=== PATIENT | male | born 1945 | race Caucasian/White ===

== ENCOUNTER → 2024-03-29 14:49 | Outpatient (REF) | payer OTHER, SELFPAY | LOC: RCS 14:49 | PROVIDERS: ATTENDING PHYSICIAN Family Medicine | DX: I49.9 Cardiac arrhythmia, unspecified (principal) | CPT/HCPCS: 93005 ==

== ENCOUNTER → 2024-08-23 11:47 | Outpatient (REF) | payer OTHER, SELFPAY | LOC: HWRAD 11:47 | PROVIDERS: ATTENDING PHYSICIAN Family Medicine | DX: F17.210 Nicotine dependence, cigarettes, uncomplicated (principal) | CPT/HCPCS: 71271 ==

== ENCOUNTER → 2024-12-15 09:43 | Outpatient (REF) | payer OTHER, SELFPAY | LOC: RAD 09:43 | PROVIDERS: ATTENDING PHYSICIAN Nurse Practitioner Family; FAMILY PHYSICIAN Family Medicine | DX: M54.42 Lumbago with sciatica, left side (principal); M25.552 Pain in left hip | CPT/HCPCS: 72110; 73523 ==

== ENCOUNTER 2025-03-27 21:58 | Inpatient (IN) | payer OTHER, SELFPAY ==
[2025-03-27] VITALS (11 sets, daily range): BP systolic 93–132; BP diastolic 60–98; BMI 25.2
[2025-03-27 18:23] LABS: Glucose - Point of Care 320 mg/dl (70-99)
[2025-03-27 18:54] LABS: Hematocrit 45.8 % (39.0-52.0); Hemoglobin 16.2 g/dL (13.0-18.0); Mean Corp Hgb Conc. 35.4 g/dL (33.0-37.0); Mean Corpuscular Volume 92.9 fL (80.0-94.0); Nucleated Red Blood Cells % 0 % (-); Platelet Count 182 10^3/uL (130-400); Red Cell Dist. Width 12.4 % (11.5-14.5)
[2025-03-27] MEDS: NSS 1000 IV (18:59)
[2025-03-27 19:09] LABS: ALT (SGPT) 18 U/L (0-50); AST (SGOT) 21 U/L (17-59); Albumin 5.1 g/dl (3.5-5.0); Alkaline Phosphatase 45 U/L (38-126); Blood Urea Nitrogen 23 mg/dl (9-20); Calcium 9.8 mg/dl (8.4-10.2); Carbon Dioxide 26 mmol/L (22-30); Chloride 105 mmol/L (98-107); Glucose 323 mg/dl (70-99); Potassium 4.6 mmol/L (3.5-5.1); Sodium 142 mmol/L (135-145); Total Protein 8.0 g/dl (6.3-8.2); eGFR 38.29
[2025-03-27 19:42] LABS: Troponin I 0.047 ng/ml
[2025-03-27] MEDS: LOW STRENGTH ASPIRIN 324 MG PO (20:04)
[2025-03-27 20:36] LABS: Urine Character Clear (Clear)
--- NOTE | 2025-03-27 20:41 | ED.GENMED ---
History of Present Illness
General
Chief Complaint: Change in Mental Status
Source: patient and family
Exam Limitations: none
Time Seen by Provider: 03/27/25 18:50
Nursing documentation reviewed up to this point in time: agreed with except (Patient here after syncopal event; had transient confusion in triage that patient says was more agitation due to having to be in the hospital)
History of Present Illness
History of Present Illness:
79-year-old male with history of mild dementia, COPD, hypertension, CAD, CKD presents to the emergency room with his daughters for evaluation after syncopal episode. Patient was at a green party for his granddaughter and was talking to a family member
when he apparently started to have a blank look on his face and became profusely diaphoretic and stumbled forward. Fortunately family was able to catch him and lowered him down onto her couch. Patient apparently was complaining of some nausea and
daughter say he was grabbing in his chest but patient denies chest pain. He was brought into the emergency room and while he was in triage he apparently was mildly confused although patient says that he was actually just agitated because he did not
want to be in the emergency room. At time of my assessment patient says that he feels well he denies having dizziness, chest pain, shortness of breath, palpitations, nausea, abdominal pain or any other issues. He denies any headache, focal
weakness or numbness, change in his vision or speech. There has apparently been some increased stress at home due to recent passing of patient's .
Past History
Past History
ED Past Medical History: CAD, HTN, NIDDM and Other (gout)
ED Past Surgical History: None
Social History
Personal:
Living: with family
Employment: Retired
Review of Systems
Review of Systems
All Other Systems: ROS reviewed and negative except as documented in HPI and ROS
Constitutional: Denies fever
Respiratory: Denies trouble breathing
Cardiac: Reports diaphoresis and syncope; Denies chest pain
ABD/GI: Denies abdominal pain, nausea or vomiting
: Denies flank pain
Musculoskeletal: Denies neck pain or back pain
Neurological: Denies headache
Phy Exam
Physical Exam
Physical Exam:
General: Awake, alert, oriented x3; no acute distress
Head: Normocephalic, atraumatic
Eyes: Conjunctiva normal, EOMI
Throat: Airway intact, handling secretions
Neck: Trachea midline, supple without meningismus
Lungs: Clear to auscultation bilaterally, no wheezing, rales, rhonchi
Heart: Regular rate and rhythm, no murmurs, gallops, or rubs appreciated
Abd: Soft, non distended, nontender
Neuro: Cranial nerves intact, speech fluid without dysarthria or aphasia, no limb ataxia, motor and sensory intact in all extremities
Skin: Warm and dry, no signs of trauma
Extremities: No edema in extremities, equal pulses in all extremities
Scores
Heart Failure Risk
Heart Failure Risk Score: Not Applicable
Heart Score for Chest Pain Patients
STEMI patient?: Not applicable
Withdrawal Assessment of Alcohol
Withdrawal Assessment Completed?: Not applicable
Course
Orders/Labs/Results
Orders:
Orders
03/27/25 Dinner
1800 calorie (15 carb) Diabetic
At Your Request: Full Participation
03/27/25 18:35
EKG [Electrocardiogram (*1)] Urgent
Reason for Study: Syncope
EKG- Treatment ONCE
03/27/25 18:47
Complete Blood Count/With Diff Urgent
Comprehensive Metabolic Panel Urgent
03/27/25 18:51
CT Head W/o Iv Contrast Urgent
Comment:
Reason For Exam: syncope, transient confusion
0.9% Sodium Chloride 1000 ml [Nss] 1,000 ml IV BOLUS
03/27/25 18:54
Acetone [B-Hydroxybutyrate] Urgent
Troponin I Urgent
03/27/25 19:46
Aspirin Chewable [Low Strength Aspirin] 324 mg PO NOW STA
03/27/25 20:30
Urinalysis Reflex To Culture Urgent
Date Specimen was Collected: 03/27/25
Time Specimen was Collected: 20:28
03/27/25 20:38
Heparin 4,000 units IV NOW STA
03/27/25 20:[address] Non Medication Order As Directed
Physician Order: PTT 6 hours after initial start of Heparin infusion
Above order entered?: Yes
03/27/25 20:44
PTT Urgent
Comment: Obtain baseline before beginning heparin infusion if not already collected
03/27/25 20:45
Heparin 72836 Units/250 ml 25,000 units in 250 ml IV PER PROTOCOL
Weight to be used for heparin protocol in kilograms (kg):: 88.9
Protocol:: Cardiac Tx/Acute Coronary
PTT Goal Range to be used:: PTT 73 to 111 seconds
Order type:: Initial
INITIAL Infusion Dose (UNITS/KG/hr) & then follow protocol:: 12 units/kg/hr
Infusion Dose in UNITS/hr & then follow protocol (UNITS/hr):: 1,000
INFUSION RATE in mL/hr & then follow protocol (mL/hr):: 10
PTT less than or equal to 64 seconds:: Increase rate by 200 units/hr (+ 2 mL/hr)
PTT 64.1 to 72.9 seconds:: Increase rate by 100 units/hr (+ 1 mL/hr)
PTT 73 to 111 seconds:: Target Range. No change in rate.
PTT 111.1 to 130.9 seconds:: Decrease rate by 100 units/hr (- 1 mL/hr)
PTT 131 to 199.9 seconds:: HOLD for 1 hr. Then decrease rate by 200 units/hr (- 2 mL/hr)
PTT greater than or equal to 200 seconds:: HOLD for 2 hrs & Notify Provider. Then decrease by 200 units/hr (-
2 mL/hr)
Lab follow-up:: Each change, PTT q6h until 2 consecutive are therapeutic. Then PTT
daily.
03/27/25 21:23
Admit/Transfer Patient As Directed
Co-Sign Provider:
Level of Care: Inpatient admission
Assign to:: IVU
Physician / Group: Karlie
Diagnosis: NSTEMI
Reason for Hospitalization: syncope, nstemi
Expected length of stay greater than two midnights?: Yes
ELOS- Estimated Length of Stay in days: 2
I certify the patient meets the requirements for IP care: Yes
PRN Pain Medication Management As Directed
May give lesser potent ordered pain med per pt: Yes
preference::
Protocol:: Medication orders for pain may be administered in a
manner that supports deferring to patient preference
when the pt is:
- Requesting an ordered lesser potent pain medication.
Least to most potent pain medications are defined
as: acetaminophen < NSAID < tramadol < opioids
(morphine, oxycodone, hydromorphone).
- Requesting a lesser dose of the same medication IF
ORDERED.
- Requesting a less intrusive route of administration
if both routes are prescribed by the provider (PO <
IV).
03/27/25 21:24
Code Status As Directed
Resuscitation Status: Full Code
03/27/25 22:30
Troponin I Urgent
03/27/25 23:46
0.9% Sodium Chloride 1000 ml [Nss] 1,000 ml IV 75 mls/hr
Acetaminophen [Tylenol] 650 mg PO Q4HPRN PRN
Gabapentin [Neurontin] 300 mg PO TID
Ipratropium/Albuterol Sulfate [Duoneb] 3 ml INH R Q4HPRN PRN
Ondansetron Injectable [Zofran] 4 mg IV Q6HPRN PRN
03/27/25 23:46
Echo 2D MMode Color/Doppler Routine
Reason for Study: chest pain
Diabetes Management by Nurse Practitioner Routine
Consulting Provider: Alda Grace
Was provider already notified?: No
Reason for Consult: Insulin Recommendation
VTE Contraindication Routine
VTE Mechanical Device Contraindication: Medical Contraindication
Pharmocologic Contraindication: Medical Contraindication
Glycohemoglobin (HgbA1c) Routine
Heparin Protocol- PTT Orders As Directed
PTT per Heparin protocol: -Obtain CBC and baseline PTT - if not already collected.
-Obtain PTT 6 hours from start of infusion. Then, every 6 hours until 2 consecutive
PTT's are therapeutic. Then, PTT Daily.
-With each rate change, obtain PTT every 6 hours until 2 consecutive PTT's are
therapeutic. Then, PTT Daily.
Activity As Directed
Activity Level: With Assistance
Bedside Glucose Monitoring As Directed
Frequency: Q6H
ECG as needed As Directed
ECG as needed for:: Chest Pain
Additional Instructions:: with chest pain x 2 episodes.
INT (Intravenous Needle Therapy) As Directed
Comment: maintain peripheral IV access
Intake/ Output As Directed
Frequency: Per unit guidelines
Notify MD As Directed
Notify physician if: PTT is greater than or equal to 200.
Vital Signs As Directed
Frequency: q4h
Weight As Directed
Frequency: Daily
Pulse Ox/cont/shift [RESP] Routine
Quantity: 1
03/28/25 00:00
Insulin Aspart Corrective Low [Novolog Flexpen-Low Resistance] See Protocol SC Q6
03/28/25 00:55
Troponin I Q3H
Comment: at admit & Q3H for 3 total including ED draws, obtain ECG with each level
03/28/25 03:45
Basic Metabolic Panel IN AM
Cardiovascular Evaluation IN AM
Complete Blood Count/No Diff IN AM
Magnesium IN AM
NT-proBNP IN AM
PTT Stat
Troponin I Q3H
Comment: at admit & Q3H for 3 total including ED draws, obtain ECG with each level
Troponin I Q3H
Comment: at admit & Q3H for 3 total including ED draws, obtain ECG with each level
03/28/25 06:00
Electrocardiogram (*1) IN AM
Reason for Study: Chest Pain
Comment: at admission and Q3H for total of 3, to be done with each troponin
03/28/25 08:00
Aspirin Chewable [Low Strength Aspirin] 81 mg PO DAILY
Dapagliflozin [Farxiga] 5 mg PO DAILY
Duloxetine Delayed Release [Cymbalta Delayed Release] 30 mg PO BID
Ezetimibe [Zetia] 10 mg PO DAILY
Fluticasone/Salmeterol 115/21 [Advair Hfa 115/21 Mcg Inhaler] 2 puff INH R BID
Galantamine [Razadyne] 8 mg PO DAILY
Losartan [Cozaar] 100 mg PO DAILY
Memantine HCl [Namenda] 10 mg PO DAILY
Pantoprazole [Protonix] 40 mg PO DAILY
Sitagliptin Phosphate [Januvia] 50 mg PO DAILY
Tamsulosin [Flomax] 0.8 mg PO DAILY
03/28/25 09:00
Orthostatic Vital Signs As Directed
Orthostatic VS Frequency: Now
03/28/25 18:00
Rosuvastatin Calcium [Crestor] 40 mg PO QPM
03/29/25 06:00
Complete Blood Count/No Diff Q2D
Comment: notify provider: Platelet count < 130,000 or decrease by 50% from baseline
03/31/25 06:00
Complete Blood Count/No Diff Q2D
Comment: notify provider: Platelet count < 130,000 or decrease by 50% from baseline
04/02/25 06:00
Complete Blood Count/No Diff Q2D
Comment: notify provider: Platelet count < 130,000 or decrease by 50% from baseline
04/04/25 06:00
Complete Blood Count/No Diff Q2D
Comment: notify provider: Platelet count < 130,000 or decrease by 50% from baseline
04/06/25 06:00
Complete Blood Count/No Diff Q2D
Comment: notify provider: Platelet count < 130,000 or decrease by 50% from baseline
04/08/25 06:00
Complete Blood Count/No Diff Q2D
Comment: notify provider: Platelet count < 130,000 or decrease by 50% from baseline
04/10/25 06:00
Complete Blood Count/No Diff Q2D
Comment: notify provider: Platelet count < 130,000 or decrease by 50% from baseline
04/12/25 06:00
Complete Blood Count/No Diff Q2D
Comment: notify provider: Platelet count < 130,000 or decrease by 50% from baseline
Abnormal Lab Results
03/27/25 03/27/25 03/27/25
18:21 18:47 18:54
WBC 13.2 H 10^3/uL
(4.8-10.8)
MCH 32.9 H pg
(27.0-31.0)
Absolute Neuts (auto) 8.5 H 10^3/uL
(1.4-6.5)
Absolute Monos (auto) 1.0 H 10^3/uL
(0.1-0.6)
BUN 23 H mg/dl
(9-20)
Creatinine 1.8 H mg/dL
(0.7-1.3)
Glucose 323 H mg/dl
(70-99)
Troponin I 0.047 H* ng/ml
Albumin 5.1 H g/dl
(3.5-5.0)
Urine Glucose
POC Glucose 320 H mg/dl
(70-99)
03/27/25
20:30
WBC
MCH
Absolute Neuts (auto)
Absolute Monos (auto)
BUN
Creatinine
Glucose
Troponin I
Albumin
Urine Glucose 4+ A
(Negative)
POC Glucose
03/27/25 18:47
03/27/25 18:47
Vital Signs
Initial and Last Documented VS:
Initial Vital Signs
Temp Pulse Resp BP Pulse Ox
36.4 C 50 18 132/84 98
03/27/25 18:23 03/27/25 18:23 03/27/25 18:23 03/27/25 18:23 03/27/25 18:23
Last Documented Vital Signs
Temp Pulse Resp BP Pulse Ox
36.6 C 67 18 122/79 99
03/28/25 03:35 03/28/25 04:15 03/28/25 03:35 03/28/25 03:37 03/28/25 03:35
MDM/Problems Addressed
Differential Diagnosis Includes:
Dysrhythmia, valvular disease, IA, stroke, vasovagal syncope, dysautonomia, dehydration
MDM/Problems Addressed:
79-year-old male presents for evaluation after syncopal event associated with profuse diaphoresis; daughter said that he also complained of some chest pain but patient denies this. He had some transient agitation/confusion in triage that patient
says was because he did not want to be in the hospital and felt bad about causing a scene and his granddaughters green party. Currently says he is asymptomatic. Vital signs normal. Physical exam as above. He had lab work sent off including a CBC which
showed no anemia, CMP showed [place] with a creatinine of 1.8. EKG showed sinus rhythm with some nonspecific T wave abnormalities. His initial troponin was mildly elevated. CT head no acute pathology. Concern for NSTEMI although /valvular disease
a consideration. Low suspicion for PE with no tachycardia, tachypnea, hypoxia, chest pain, shortness of breath. Will start aspirin, heparin, admit for continued management, trending of troponins. Discussed with hospitalist.
Chronic conditions affecting care:
CAD
*Pulse Oximetry
SaO2: 98
Oxygen Mode of Delivery: Room air
Patient hypoxic: no (98%)
*EKG
Interpreted by ED Provider?: Yes
Heart Rate: 98
Rate: normal
Rhythm: sinus
[place]: normal axis
Interval: normal interval
QRS Pattern: normal QRS
Ischemia: other (Nonspecific T wave abnormalities)
*Critical Care Note
Total Time (30-74mins, 75-104mins- exclusive of procedures): Not Applicable
Data Reviewed
Review of Other/Old Records Reveals: Labs and Records
Source: patient and family
Patient Management
Discussion with other providers: Hospitalist (Discussed with hospitalist)
Escalation/DeEscalation of care consider admission/obs:
Admission indicated
ED Attending Note
-
Portions of this chart may have been created with voice recognition software.� Occasional wrong word or��sound alike� substitutions may have occurred due to the inherent limitations of voice recognition software.
Discharge Plan
Departure
Patient Disposition: Admit
Date of Disposition: 03/27/25
Time of Disposition: 20:41
Admit to doctor: Karlie
Presentation/result/management discussed w/ accepting MD/DO: Hospitalist
Discharge Problem:
Syncope, Non-ST elevation IA (NSTEMI)
Interventions
Interventions:
*Risk Screen - Suicide Last Done: 03/27/25 18:23
*General Assessment Last Done: 03/27/25 18:23
*ED- Fall Risk Assessment Last Done: 03/27/25 18:23
*ED COVID-19 Vaccine History Last Done: 03/27/25 18:23
*Nursing Disposition Last Done: 03/28/25 00:18
ED- Pulmonary Assessment Last Done: 03/27/25 19:00
ED- Neurological Assessment Last Done: 03/27/25 19:00
ED- Cardiac Assessment Last Done: 03/27/25 19:00
Discharge Date and Time
Discharge Date/Time: 03/28/25 00:18
--- NOTE | 2025-03-27 20:56 | HPS.HSE ---
Family Physician
-
Family Physician: Lisa Lobo
Chief Complaint
-
NSTEMI
History of Present Illness
This is a 79-year-old with past medical history significant for hypertension, cnd-lzianlv-ipyajvoow diabetes, carotid artery disease, COPD not on home O2, hyperlipidemia CKD stage III history of PVCs, early dementia presenting to the emergency
department after a syncopal episode at home.
Family reports that for about the last 2 weeks patient has appeared more fatigued. However patient himself denies any dizziness lightheadedness chest pain orthopnea PND lower extremity swelling palpitations or shortness of breath or dyspnea on
exertion. Denies any acute weight gain or weight loss. He denies any fevers or chills.
Apparently was in usual state of health yesterday. Today while at home sitting and talking with family members he had a brief syncopal episode where he almost collapsed and was caught by family members. He came to with some mild confusion and some
difficulty with speech. He had no loss of bladder or bowel continence. Patient then had episode of diaphoresis for about 30 minutes which prompted them to come to the emergency department. He denied having any other symptoms. He denied any
antecedent chest pain palpitations lightheadedness or dizziness. He has had no diarrhea melena or hematochezia. Patient denies any prior history of NSTEMI, STEMI or obstructive CAD denies prior history of congestive heart failure or arrhythmias.
Family reports that his blood glucose has been running higher in the last few weeks up to 197 yesterday and 300 today. Patient reports compliance with his usual medications but has not been able to check his blood glucose regularly. Denies any
urinary symptoms.
On arrival in Emergency Department, patient was afebrile blood pressure was 116/60 with a pulse rate of 97 satting 90% on room air. ECG shows a normal sinus rhythm at rate of 8098. Initial troponin was 0.047. Her chest x-ray was clear. CT of the
head shows no acute intracranial process.
CBC was notable for a white count of 13.2 but otherwise unremarkable. Electrolytes were normal. BUN/creatinine were 23 and 1.8 similar to prior. Glucose was elevated at 323.
Medical History
Past Medical History
Past Medical History: Reports Other
Additional Past Medical History:
Type 2 diabetes
Hypertension
Hyperlipidemia
Carotid artery disease
CAD
COPD not on home O2
Obstructive sleep apnea
Dementia
History of skin cancer status post resection
Past Surgical History: Reports Other
Social History
Tobacco: Former Smoker
Alcohol: None
Drug: None
Family History
Family History: Not pertinent
Allergies / Home Medications
Allergies reflects when Allergies were last updated in [facility].
Home Medications with original date entered in [facility]
Allergy/Medication List:
Allergies
Allergy/AdvReac Type Severity Reaction Status Date / Time
shellfish derived Allergy Hives Verified 03/27/25 18:31
Omeprazole 20 MG take 1 po daily Oral Dec, Active
Aspirin 81 MG chew 1 tablet by oral route every day Oral Dec, Active
Rosuvastatin Calcium 40 MG 1 tablet Orally Once a day for 30 days Nov, Active
amLODIPine Besylate 5 MG 1 tablet Orally Once a day for 30 days Not-Taking/PRN
Colchicine 0.6 MG 1 tablet Orally Once a Day as Needed PRN Active
Gabapentin 300 MG 2 capsules Orally Three Times a Day Active
Fish Oil 1000 MG 2 in am and 2 in pm Once a Day takes 4 tab s Active
Wixela Inhub 250-50 MCG/ACT 1 puff Inhalation EVERY 12 HOURS Oct, Active
glipiZIDE 5 MG 1 tablet Orally Once a day Active
Cyanocobalamin 1000 MCG 1 tablet Orally Once a day Active
Memantine HCl 10 MG 1 tablet Orally Once a day prn Active
Zetia 10 MG 1 tablet Orally Once a day for 30 days Jul, Active
DULoxetine HCl 30 MG 1 capsule Orally twice daily for 90 days Dec, Active
Losartan Potassium 100 MG 1 tablet Orally Once a day for 30 day(s) Active
sAXagliptin HCl 5 MG 1 tablet Orally Once a day Active
Galantamine Hydrobromide 8 MG 1 tablet with meals Oral Once a Day Dec, Active
Jardiance 25 MG 1/2 tablet Orally Once a day Active
Tamsulosin HCl 0.4 MG take 2 capsule by oral route every day 1/2 hour following the same meal each day Oral Once a Day Dec, Active
Review of Systems
-
Constitutional: Reports No Symptoms
EENT: Reports No Symptoms
Respiratory: Reports No Symptoms
Cardiac: Reports No Symptoms
Abdomen/GI: Reports No Symptoms
: Reports No Symptoms
Musculoskeletal: Reports No Symptoms
Skin: Reports No Symptoms
Neurological: Reports No Symptoms
Endocrine: Reports Other (feels thirsty)
Hematologic/Lymphatic: Reports No Symptoms
Psych: Reports No Symptoms
Physical Exam
Vital Signs
Vital Signs
Temp Pulse Resp BP Pulse Ox
97.5 F 97 22 116/62 98
03/27/25 18:23 03/27/25 20:31 03/27/25 20:31 03/27/25 20:04 03/27/25 20:42
Physical Exam
General: Well Developed, Well Nourished and No Apparent Distress
HEENT: NormoCephalic, Moist mucous membranes and Atraumatic
Respiratory: Clear
Cardiac: S1/S2 and Regular Rhythm; No Murmur or Rub
GI: Soft, Non Tender, Non Distended and Normal Bowel Sounds; No Organomegaly
Rectal: Deferred by Provider
Musculoskeletal: No Clubbing, No Cyanosis and No Edema
Skin: No Rash
Neuro: Nonfocal/grossly intact
Laboratory Results
-
03/27/25 18:47
03/27/25 18:47
Laboratory Results
Total Bilirubin 0.9 mg/dl (0.2-1.3) 03/27/25 18:47
AST 21 U/L (17-59) 03/27/25 18:47
ALT 18 U/L (0-50) 03/27/25 18:47
Alkaline Phosphatase 45 U/L (38-126) 03/27/25 18:47
Troponin I 0.047 ng/ml H* 03/27/25 18:54
Data Reviewed
-
CT Scan: Report Reviewed by me
Medical Tests (Nuc Med, Echo, EKG etc): Image Personally Visualized and interpreted
Lab Data: Labs Reviewed by me
Old Records: Reviewed
Impression/Plan
-
IMPRESSION:
79-year-old with diabetes, hypertension, hyperlipidemia, coronary artery disease and CKD presenting with a syncopal episode associated with diaphoresis. Initial ECG shows a normal sinus rhythm, frequent PVCs on telemetry. Initial troponin was
0.047. Patient vital signs are stable at this time. CT of the head was negative. Neurological exam is nonfocal. He has no signs of acute infection, UA negative. Elevated glucose but no DKA. Concern is for arrhythmia which may be in the setting
of ischemia versus non-ST elevation FL.
PLAN:
1. NSTEMI - Diaphoresis, syncope, high risk factors. No chest pain at this time. ECG non-ischemic. PVCs on telemetry
- admit to ivu
- asa 324 x 1
- heparin gtt
- continue ezetimibe and rosuvastatin
- trend troponins
- echo in am, cardiovascular testing
- possible invasive testing, npo after midnight
- cardiology consult
2. Syncope - ACS vs arrythmia
- telemetry as above
- ischemic w/u as above
- check mag, keep K > 4
- check tsh
- if bea, will consult EP
- rate control and abortive if VT
- CT head negative
- check orthostatics
- s/p 1 L NS, continue with gentle hydration
3. Uncontrolled DM II - Glucose 320, No DKA
- sliding scale insulin
- continue jardiance/farxiga
- held glipizide while not eating
- check a1c
- diabetic consult
4. COPD/TARAN - stable
- continue inhaled home regimen
- prn nebs
- not using CPAP, continous pulse oximetry, Oxygen prn
5. HTN
- continue losartan,
6. CKD - Cr 1.8 bl
- hydrating overnight
- avoid nephrotoxins
- renal dose medications
DVT PPX - on heparin gtt
Code status - Full Code
[2025-03-27 21:00] LABS: APTT 28.9 Sec (23.4-35.0)
[2025-03-27] MEDS: HEPARIN 4000 UNITS IV (21:13)
[2025-03-27] MEDS: HEPARIN 25000 UNITS/250 ML IV (21:14)
[2025-03-27 23:05] LABS: Troponin I 0.032 ng/ml
[2025-03-28] VITALS (13 sets, daily range): BP systolic 113–165; BP diastolic 78–95; PULSE 92–104; BMI 25.2
[2025-03-28 00:23] LABS: Glucose - Point of Care 146 mg/dl (70-99)
[2025-03-28] MEDS: NSS 1000 IV ×2 (00:41→16:36)
[2025-03-28] MEDS: NOVOLOG FLEXPEN-LOW RESISTANCE SC ×2 (00:41→07:34)
[2025-03-28] MEDS: NEURONTIN 300 MG PO ×4 (00:42→23:48)
--- NOTE | 2025-03-28 01:11 | PTCARENOTE ---
Received patient from ED. SR with PVCs on the monitor, HR in the 70s. VSS on room air. Patient alert and oriented. Heparin running as per protocol, see documentation. IV fluids started as per order, see MAR. Admission assessment completed. Oriented
pt to room and educated pt on plan of care, pt verbalizes understanding. No complaints from pt at this time, call fernandez within reach.
[2025-03-28 01:39] LABS: Troponin I 0.040 ng/ml
[2025-03-28 04:04] LABS: Hematocrit 37.4 % (39.0-52.0); Hemoglobin 13.0 g/dL (13.0-18.0); Mean Corp Hgb Conc. 34.8 g/dL (33.0-37.0); Mean Corpuscular Volume 93.3 fL (80.0-94.0); Platelet Count 125 10^3/uL (130-400); Red Cell Dist. Width 12.4 % (11.5-14.5)
[2025-03-28 04:10] LABS: APTT 53.8 Sec (23.4-35.0)
[2025-03-28 04:15] LABS: Blood Urea Nitrogen 21 mg/dl (9-20); Calcium 8.7 mg/dl (8.4-10.2); Carbon Dioxide 19 mmol/L (22-30); Chloride 112 mmol/L (98-107); Estimated Creatinine Clearance 60 ml/min; Glucose 132 mg/dl (70-99); HDL Cholesterol 28 mg/dl; LDL Cholesterol, Calculated 14 mg/dl; Magnesium 1.9 mg/dl (1.6-2.3); Potassium 4.0 mmol/L (3.5-5.1); Sodium 139 mmol/L (135-145); Very Low Density Lipoprotein 38 mg/dl (0-30); eGFR > 60.00
[2025-03-28 04:33] LABS: Troponin I 0.044 ng/ml
[2025-03-28 04:49] LABS: TSH 1.26 uIU/ml (0.47-4.68)
[2025-03-28 06:30] LABS: Glucose - Point of Care 155 mg/dl (70-99)
--- NOTE | 2025-03-28 08:07 | CON.CAR ---
Addendum entered and electronically signed by Brenda Rob MD 03/28/25 13:03:
I saw and examined the patient.
The Supervising Bailiff's note was reviewed and I agree with the note.
Comment:
Exam:
Pleasant man in bed
Regular rate and rhythm with 2/6 basal systolic murmur
Lungs clear to auscultation bilateral decreased at the bases
Extremities no clubbing cyanosis or edema
He presented with an episode of syncope and brief change in mental status after being out in the heat and having uncontrolled sugars recently. Troponins have been flat with peak 0.047. EKG nonspecific ST-T wave abnormalities but not acute. Head CT
was negative for acute abnormality. He has known severe carotid disease on the right by ultrasound at the [place] 06/2024. He has not seen vascular by report. He denies chest discomfort. A few days prior to this he was lifting and emptying cabinets
in his home without difficulty. I spoke at length with the patient and his daughter at the bedside.
Plan at this time:
Syncope was most likely dehydration (creatinine also increased which improved with hydration) and uncontrolled diabetes
Continue hydration
Check orthostatic vital signs
Diabetes management per primary service (hemoglobin A1c 8.9%)
Check carotid ultrasound, may need outpatient vascular assessment
Currently on heparin, likely troponins represent nonischemic troponin elevation.
-Will check echocardiogram. If normal could consider inpatient/outpatient nuclear stress test pending how he does.
-If echocardiogram abnormal further treatment decisions to be determined.
Telemetry with PVCs. Asymptomatic. Follow. Await echo.
Lipids at goal continue current treatment
Addendum Dictated by: Brenda Rbo MD
Addendum Dictated Date & Time: 03/28/25
Addendum Co-Signer: Brenda Rob MD
Addendum Co-Sign Date & Time:03/28/251032
Addendum Signed by: Liane GASRIA,Brenda Wallace
Addendum Signed Date & Time: 07/21/25 1033
Original Note:
Consultation
Consultation Request
Date/Time Consultation Requested: 03/27/25 at 2346
Date/Time Consultation Performed: 03/28/25 at 0813
Requesting Provider: Dr. Resendiz
Performing Provider: Dr. Brenda Rob
Reason for Consultation: Syncope, elevated Troponin
Medical History
-
History of Present Illness:
Patient came to the ER yesterday with syncope and chest pain and cardiology is now consulted. Patient was standing outside at his granddaughter's birthday constitution party yesterday in the heat and humidity and was talking with his brother when he began to
look unwell and then had witnessed syncope. Daughter says patient with leg flailing. Patient able to get into a chair and then grabbed his chest. Patient was able to stand up and go inside for cake and then felt poorly again so his daughter brought
him to the ER. Patient with CHINA and hyperglycemia on admission. Patient is a known DM 2 and has not been checking his blood sugar at home for weeks due to running out of test strips. Patient also with carotid disease that is followed at the [place], but
his daughter feels this has not been evaluated recently.
PMH:
Frequent PVCs
Carotid disease
70-80% SALLY lesion by u/s at the [place] in 2023
Former smoker, quit 12/2024
HTN
Hyperlipidemia
DM 2
Past Medical History
Past Medical History: Other (in HPI)
Past Surgical History: Other (hemorrhoid surgery)
Social History
Tobacco: Former Smoker (quit 12/2024)
Alcohol: None
Drug: None
Personal: (his , Karine, with brain cancer 6 months ago)
Living: Alone
Family History
Family History: CAD, Cancer and Other (dementia)
Allergies / Home Medications
Allergy/AdvReac Type Severity Reaction Status Date / Time
shellfish derived Allergy Hives Verified 03/27/25 18:31
�Medication �Instructions �Recorded �Confirmed �Type
aspirin 81 mg capsule 81 mg PO DAILY 03/28/25 03/28/25 History
gabapentin 300 mg tablet 300 mg PO TID 03/28/25 03/28/25 History
Review of Systems
-
History Source: Patient
All other systems: Negative unless noted
Physical Exam
Vital Signs
Temp Pulse Resp BP Pulse Ox
97.8 F 67 18 122/79 99
03/28/25 03:35 03/28/25 04:15 03/28/25 03:35 03/28/25 03:37 03/28/25 03:35
GEN: NAD. AAOx3
HEENT: EOMI, MMM
LUNGS: RA. CTA B/L
CV: SR on tele. Reg, S1/S2, no murmur
ABD: soft, BS+, NT, ND
EXT: No clubbing, cyanosis, lesions or edema B/L
NEURO: Gross non-focal
SKIN: Warm, dry and pink. No rash
Lab Results
03/28/25 03:45
03/28/25 03:45
Troponin I 0.044 ng/ml H* 03/28/25 03:45
Troponin I Cancelled 03/28/25 03:45
Ggx-L-Hyvregqfxxm Pept 460 pg/ml 03/28/25 03:45
Impression / Plan
-
PCP: Dr. Lisa Lobo
Card: Dr. Doherty
Vascular surgeon: at the [place]
Impression:
Admitted with syncope and chest pain 03/27/25
Chest pain
Elevated Troponin
Syncope
Frequent PVCs and NSVT up to 4 beats
CHINA
Carotid disease
70-80% SALLY lesion by u/s at the [place] in 2023
Former smoker, quit 12/2024
HTN
Hyperlipidemia
DM 2
Exercise mibi 12/25/20: probably fixed defects in the mid inferior, apex and apical inferior segments
Echo 12/25/20: EF 50-55%, mod MR
Plan:
-Patient came to the ER yesterday with syncope and chest pain and cardiology is now consulted. Patient was standing outside at his granddaughter's birthday constitution party yesterday in the heat and humidity and was talking with his brother when he began to
look unwell and then had witnessed syncope. Daughter says patient with leg flailing. Patient able to get into a chair and then grabbed his chest. Patient was able to stand up and go inside for cake and then felt poorly again so his daughter brought
him to the ER. Patient with CHINA and hyperglycemia on admission. Patient is a known DM 2 and has not been checking his blood sugar at home for weeks due to running out of test strips. Patient also with carotid disease that is followed at the [place], but
his daughter feels this has not been evaluated recently.
-ECG reviewed by me looks like SR without ST changes.
-Tele reviewed by me and patient with frequent PVCs and up to 4 beat runs of NSVT. Patient with known h/o PVCs and was previously on Coreg, but it was stopped due to fatigue and overall not very symptomatic with PVCs.
-Initial Troponin 0.047 and then mostly trending down, but then up to 0.044 this morning. Additional Troponin pending.
-Patient denies chest pain, but family reports patient grabbed chest during this episode. Last ischemic evaluation reviewed above. Will likely proceed with inpatient stress test in the AM.
-Echo pending
-Interestingly, orthostatic VS not performed in the ER, suspect he could have been orthostatic with standing in the heat and humidity yesterday. Orthostatic VS ordered by me
-Cre up to 1.8 on admission and patient given 2 L IVFs and Cre improved to 1.2 today.
-Patient with known carotid disease that is followed at the [place], he had 70-80% SALLY lesion by last u/s in 2023. Repeat carotid u/s ordered by me
-Hospitalist attending working on DM management
--- NOTE | 2025-03-28 08:15 | W.PN.HOSP.TC ---
Addendum entered and electronically signed by Brenda Rob MD 03/28/25 13:02:
I signed and addended this note in error
Addendum entered and electronically signed by Brenda Rob MD 03/28/25 10:33:
I saw and examined the patient.
The Woven Label Designer's note was reviewed and I agree with the note.
Comment:
Exam:
Pleasant man in bed
Regular rate and rhythm with 2/6 basal systolic murmur
Lungs clear to auscultation bilateral decreased at the bases
Extremities no clubbing cyanosis or edema
He presented with an episode of syncope and brief change in mental status after being out in the heat and having uncontrolled sugars recently. Troponins have been flat with peak 0.047. EKG nonspecific ST-T wave abnormalities but not acute. Head CT
was negative for acute abnormality. He has known severe carotid disease on the right by ultrasound at the [place] 06/2024. He has not seen vascular by report. He denies chest discomfort. A few days prior to this he was lifting and emptying cabinets
in his home without difficulty. I spoke at length with the patient and his daughter at the bedside.
Plan at this time:
Syncope was most likely dehydration (creatinine also increased which improved with hydration) and uncontrolled diabetes
Continue hydration
Check orthostatic vital signs
Diabetes management per primary service (hemoglobin A1c 8.9%)
Check carotid ultrasound, may need outpatient vascular assessment
Currently on heparin, likely troponins represent nonischemic troponin elevation.
-Will check echocardiogram. If normal could consider inpatient/outpatient nuclear stress test pending how he does.
-If echocardiogram abnormal further treatment decisions to be determined.
Telemetry with PVCs. Asymptomatic. Follow. Await echo.
Lipids at goal continue current treatment
Original Note:
Today's Communication/Plan
-
Hemoglobin A1c
Cardiology consult
Echocardiogram
Orthostatics
Assessment / Plan
Assessment / Plan
Gen-AAOx3, NAD
HEENT-NC, AT, anicteric, clear oral mm
Neck-supple
CV-reg, no M, +S1/S2
Lungs-clear B/L
Abd-soft, NT, ND
Ext-no edema
Musculoskeletal-no cyanosis, clubbing
Skin-warm and dry
Neuro-grossly non-focal
Psych-calm, cooperative
Syncope -most likely due to volume depletion, possible vasovagal. Check orthostatic vitals. Volume status improved with IV fluids.
Echocardiogram pending.
CHINA -present on admission, due to volume depletion. Creatinine improved with IV fluids.
Troponin elevation -suspect acute nonischemic myocardial injury possibly due to CHINA and volume depletion.
Patient believes he had a silent [place] in 2009. Never had a catheterization. States he had a negative stress test a year ago.
DM2 with hyperglycemia -suspect hyperglycemia induced osmotic diuresis with volume depletion and subsequent presentation with syncope and CHINA. He ran out of test strips for his glucometer a week ago and likely has been hyperglycemic for a while.
Hemoglobin A1c pending.
At home he uses glipizide, Jardiance, saxagliptin. Not on insulin.
Acute thrombocytopenia -rule out pseudothrombocytopenia.
Essential hypertension -stable.
COPD without exacerbation
Hyperlipidemia -rosuvastatin.
History of skin cancer
TARAN
Carotid artery disease
Dementia, unknown type -on memantine, galantamine.
Full code
Dispo -likely discharge later today if okay with cardiology.
Anticipated Discharge: Today
Subjective/Interval History
-
Date of Service: March 28, 2025
Patient seen and examined, no complaints.
Objective Data
-
Labs:
Laboratory Results
03/27/25 03/28/25 03/28/25
20:44 03:45 10:20
WBC 7.5
Hgb 13.0
Hct 37.4 L
Plt Count 125 L D
APTT 28.9 53.8 H Pending
Sodium 139
Potassium 4.0
Chloride 112 H
Carbon Dioxide 19 L
BUN 21 H
Creatinine 1.2
Glucose 132 H
Calcium 8.7
Vital Signs:
Vital Signs
Temp Pulse Resp BP Pulse Ox
97.8 F 67 18 122/79 99
03/28/25 03:35 03/28/25 04:15 03/28/25 03:35 03/28/25 03:37 03/28/25 03:35
Review of Systems
-
History Source: Patient
All other systems: Reviewed and negative
[2025-03-28 08:20] LABS: Glycohemoglobin (HgbA1c) 8.9 % (4.0-5.6)
[2025-03-28] MEDS: ADVAIR HFA 115/21 MCG INHALER 2 PUFF INH ×2 (08:32→19:57)
--- NOTE | 2025-03-28 09:05 | CM ---
Reviewed chart. Met with Mr. Gamez to review discharge plans. He states prior to admission he resides alone in a one story home. He states prior to admission he was independent with ambulation and adls. He states he does not have any DME in the
home. He states he has a prescription plan and uses [facility]. Medical work-up in progress. The discharge plan is to return home when medically stable.
[2025-03-28 09:32] LABS: Glucose - Point of Care 156 mg/dl (70-99)
[2025-03-28] MEDS: PROTONIX 40 MG PO (09:34)
[2025-03-28] MEDS: JANUVIA 50 MG PO (09:35)
[2025-03-28] MEDS: LOW STRENGTH ASPIRIN 81 MG PO (09:35)
[2025-03-28] MEDS: FLOMAX 0.8 MG PO (09:35)
[2025-03-28] MEDS: COZAAR 100 MG PO (09:35)
[2025-03-28] MEDS: NAMENDA 10 MG PO (09:35)
[2025-03-28] MEDS: CYMBALTA DELAYED RELEASE 30 MG PO ×2 (09:35→20:17)
[2025-03-28] MEDS: FARXIGA 5 MG PO (09:35)
[2025-03-28] MEDS: ZETIA 10 MG PO (09:36)
[2025-03-28] MEDS: RAZADYNE 8 MG PO (09:36)
[2025-03-28] MEDS: NOVOLOG FLEXPEN-LOW RESISTANCE 1 UNITS SC ×2 (09:41→18:54)
--- NOTE | 2025-03-28 11:34 | CARDSERVLU ---
Echocardiogram with [facility] completed after protocol screening completed. Allergies verified.
Patent IV site: ____left AC_
IV site flushed with 0.9% NaCl pre and post administration.
Diluted bolus method utilized to enhance visualization of ventricular bradshaw.
Total volume given: ___3.0 mL
Patient tolerated all procedures well without complications.
[2025-03-28 12:35] LABS: Glucose - Point of Care 212 mg/dl (70-99)
[2025-03-28 12:36] LABS: APTT 56.7 Sec (23.4-35.0)
[2025-03-28 12:57] LABS: Troponin I 0.036 ng/ml
[2025-03-28] MEDS: NOVOLOG FLEXPEN-LOW RESISTANCE 2 UNITS SC ×2 (13:07→23:48)
--- NOTE | 2025-03-28 14:01 | W.PN.UPDATE ---
Addendum entered and electronically signed by Brenda Rob MD 03/29/25 08:43:
I personall spoke at great length in afternoon 03/28/25 with the patient and his 2 daughters at the bedside. We discussed decline in LVEF and concern re: CAD in the setting of mildly elevated troponin and uncontrolled DM. We discussed the risks and
benefits of cardiac cath and other treatment options. All questions answered. He is clinically stable. Plan for cath 03/29 and GDMT for likely CAD and HFmREF.
Original Note:
Update Note
Progress Note Update
Back in to talk with patient and both of his daughters are now in the room. Reviewed echo findings from today with EF 40% which is new compared to echo from 2020. Patient with chest pain and elevated Troponin. Reviewed symptoms on admission and
talked about options and family and patient would like to pursue cardiac cath in AM. Cont heparin gtt. Outpatient dose of aspirin 81 mg daily continued. Will hold losartan in AM and follow BMP.
[2025-03-28] MEDS: HEPARIN 25000 UNITS/250 ML IV (18:49)
[2025-03-28 18:56] LABS: Glucose - Point of Care 191 mg/dl (70-99)
[2025-03-28] MEDS: CRESTOR 40 MG PO (19:19)
[2025-03-28 19:57] LABS: APTT 61.2 Sec (23.4-35.0)
[2025-03-28 22:56] LABS: Glucose - Point of Care 219 mg/dl (70-99)
[2025-03-29] VITALS (10 sets, daily range): BP systolic 120–145; BP diastolic 66–100; BMI 25.6
[2025-03-29 03:24] LABS: Hematocrit 35.5 % (39.0-52.0); Hemoglobin 12.1 g/dL (13.0-18.0); Mean Corp Hgb Conc. 34.1 g/dL (33.0-37.0); Mean Corpuscular Volume 93.2 fL (80.0-94.0); Nucleated Red Blood Cells % 0 % (-); Platelet Count 115 10^3/uL (130-400); Red Cell Dist. Width 12.3 % (11.5-14.5)
[2025-03-29 03:31] LABS: APTT 103.9 Sec (23.4-35.0)
[2025-03-29 03:32] LABS: Blood Urea Nitrogen 19 mg/dl (9-20); Calcium 8.5 mg/dl (8.4-10.2); Carbon Dioxide 23 mmol/L (22-30); Chloride 110 mmol/L (98-107); Estimated Creatinine Clearance 72 ml/min; Glucose 163 mg/dl (70-99); Potassium 4.0 mmol/L (3.5-5.1); Sodium 137 mmol/L (135-145); eGFR > 60.00
--- NOTE | 2025-03-29 05:02 | PTCARENOTE ---
Rec'd pt at change of shift. Pt AAO*3, VSS, and SR on TELE monitor. Heparin and iv fluids infusing as ordered. Pt resting with call fernandez in reach. See MAR and flowchart for full pt care and assessment. Pt npo after midnight for heart cath.
--- NOTE | 2025-03-29 05:02 | DOWNTIME ---
There was a Plan Me Up Client Chemistry Research Assistant Downtime on 03/29/2025 from 0100 to 03/29/2025 at 0220. Downtime documentation of patient's care, including medication administrations, has been reconciled in the electronic record per guidelines. Refer to the
patient's paper chart under the miscellaneous tab to see printed paper medication records and downtime forms.
[2025-03-29] MEDS: NSS 1000 IV (06:03)
[2025-03-29] MEDS: NOVOLOG FLEXPEN-LOW RESISTANCE 1 UNITS SC ×2 (06:07→12:45)
[2025-03-29 06:08] LABS: Glucose - Point of Care 153 mg/dl (70-99)
[2025-03-29] MEDS: ADVAIR HFA 115/21 MCG INHALER 2 PUFF INH (07:56)
[2025-03-29] MEDS: FARXIGA 5 MG PO (08:19)
[2025-03-29] MEDS: NAMENDA 10 MG PO (08:19)
[2025-03-29] MEDS: NEURONTIN 300 MG PO (08:19)
[2025-03-29] MEDS: RAZADYNE 8 MG PO (08:19)
[2025-03-29] MEDS: JANUVIA 50 MG PO (08:19)
[2025-03-29] MEDS: PROTONIX 40 MG PO (08:19)
[2025-03-29] MEDS: ZETIA 10 MG PO (08:19)
[2025-03-29] MEDS: LOW STRENGTH ASPIRIN 81 MG PO (08:20)
[2025-03-29] MEDS: CYMBALTA DELAYED RELEASE 30 MG PO (08:20)
[2025-03-29] MEDS: FLOMAX 0.8 MG PO (08:20)
--- NOTE | 2025-03-29 11:23 | W.PN.HOSP.TC ---
Today's Communication/Plan
-
Diabetes JORDAN MAN consult
Discharge
Assessment / Plan
Assessment / Plan
Gen-AAOx3, NAD
HEENT-NC, AT, anicteric, clear oral mm
Neck-supple
CV-reg, no M, +S1/S2
Lungs-clear B/L
Abd-soft, NT, ND
Ext-no edema
Musculoskeletal-no cyanosis, clubbing
Skin-warm and dry
Neuro-grossly non-focal
Psych-calm, cooperative
Nonischemic cardiomyopathy -new diagnosis. Echocardiogram shows LVEF 40% with global hypokinesis, mild to moderate concentric LVH. Normal diastolic function. Mild to moderate MR.
Cardiac catheterization 03/29 without significant CAD.
Outpatient cardiology follow-up.
Syncope -most likely due to volume depletion, possible vasovagal. Not orthostatic based on vitals. Volume status improved with IV fluids.
CHINA -present on admission, due to volume depletion. Creatinine improved with IV fluids.
Troponin elevation -suspect acute nonischemic myocardial injury possibly due to [place] and volume depletion.
Patient believes he had a silent [place] in 2009. States he had a negative stress test a year ago.
DM2 with hyperglycemia -suspect hyperglycemia induced osmotic diuresis with volume depletion and subsequent presentation with syncope and CH[place]. He ran out of test strips for his glucometer a week ago and likely has been hyperglycemic for a while.
Hemoglobin A1c 8.9%.
At home he uses glipizide, Jardiance, saxagliptin. Not on insulin.
Family requesting diabetes JORDAN MAN consult. Recommend close outpatient follow-up with PCP.
Acute thrombocytopenia -rule out pseudothrombocytopenia.
Left carotid stenosis -Doppler ultrasound suggests greater than 70% ICA stenosis. Outpatient vascular surgery follow-up. Discussed with patient and family.
Essential hypertension -stable.
COPD without exacerbation
Hyperlipidemia -rosuvastatin.
History of skin cancer
TARAN
Carotid artery disease
Dementia, unknown type -on memantine, galantamine.
Full code
Dispo -anticipate discharge today, discussed with cardiology. Follow-up as outpatient. Updated daughters at the bedside.
33 minutes spent in discharge process.
Anticipated Discharge: Today
Subjective/Interval History
-
Date of Service: March 29, 2025
Patient seen and examined. No complaints.
Objective Data
-
Labs:
Laboratory Results
03/29/25 03/29/25
02:36 09:30
WBC 5.6
Hgb 12.1 L
Hct 35.5 L
Plt Count 115 L
APTT 103.9 H Pending
Sodium 137
Potassium 4.0
Chloride 110 H
Carbon Dioxide 23
BUN 19
Creatinine 1.0
Glucose 163 H
Calcium 8.5
Vital Signs:
Vital Signs
Temp Pulse Resp BP Pulse Ox
97.8 F 74 18 120/87 97
03/29/25 08:16 03/29/25 10:33 03/29/25 08:16 03/29/25 10:33 03/29/25 08:16
I&O
03/28/25 03/29/25 03/30/25
06:59 06:59 06:59
Intake Total 480 / 480
Balance 480 / 480
Review of Systems
-
History Source: Patient
All other systems: Reviewed and negative
--- NOTE | 2025-03-29 11:27 | ITS.CL.CATH ---
[facility] - Catheterization
Cardiac Catheterization
Procedure Report:
LEFT HEART CATHETERIZATION
Date of Procedure: March 29, 2025
Referring: Dr. Brenda Rob
PROCEDURES:
1. Coronary angiography
INDICATION: Newly diagnosed cardiomyopathy
ACCESS: Right radial artery, 6 Spanish sheath
HEMODYNAMICS : (mmHg)
AO (s/d) : 130/76
CORONARY FINDINGS
DOMINANCE: Codominant
LEFT MAIN: Normal
LEFT ANTERIOR DESCENDING: The LAD arises normally from the left main and runs in the anterior interventricular groove. The LAD has only minor irregularities over its course with no focal obstructive stenosis.
CIRCUMFLEX: The circumflex is a large-caliber dominant vessel that has only minimal luminal irregularities. The PDA is widely patent
RIGHT CORONARY ARTERY: The right coronary artery is a small caliber codominant vessel with only minor irregularity
VENTRICULOGRAPHY: Not done
SEDATION: 18 minutes of procedural sedation was utilized. An independent lpn or medical assistant was present to assist with and help manage the patient's level of consciousness and physiologic status.
RADIATION SUMMARY: Fluoro Time (min): 3.5, Dose (mGy): 367, DAP (Gy.cm2) : 25.7
Closure Device: TR band
CONCLUSIONS
1. Nonobstructive coronary disease
RECOMMENDATIONS
1. Medical therapy for dilated ischemic cardiomyopathy
Copy to: Dr. Brenda Rbo
[2025-03-29 11:30] LABS: Glucose - Point of Care 167 mg/dl (70-99)
--- NOTE | 2025-03-29 11:41 | W.DS.TRANS ---
DC Summary - Division Operations Manager
-
Discharge Instructions:
Discharge Diagnosis/Procedures Acute kidney injury, volume depletion,
nonischemic cardiomyopathy, syncope, left
carotid stenosis, cardiac catheterization
Diet Low Fat,Diabetic, Carb Controlled
Activity As tolerated
Driving Restrictions No driving for 24 hours
Bathing Restrictions None
Specialty Instructions Weigh Daily
Instructions:
Stand-Alone Forms: DC Instructions- Cath/EP Lab
Changes to Home Medications: Yes
Discharge Medications:
DC Medications w/original date entered in [employer]
aspirin 81 mg capsule 81 mg PO DAILY 03/28/25
gabapentin 300 mg tablet 300 mg PO TID 03/28/25
duloxetine 30 mg capsule,delayed release 30 mg PO BID #0 caps 03/29/25
empagliflozin 25 mg tablet (Jardiance) 25 mg PO DAILY #30 tabs 03/29/25
ezetimibe 10 mg tablet 10 mg PO DAILY #0 tabs 03/29/25
fluticasone propionate 115 mcg-salmeterol 21 mcg/actuation HFA inhaler 2 puff inhalation R BID #0 grams 03/29/25
galantamine 8 mg tablet 8 mg PO DAILY #0 tabs 03/29/25
glipizide 5 mg tablet 5 mg PO DAILY #30 tabs 03/29/25
losartan 100 mg tablet 100 mg PO DAILY #0 tabs 03/29/25
memantine 10 mg tablet 10 mg PO DAILY #30 tabs 03/29/25
rosuvastatin 40 mg tablet 40 mg PO QPM #0 tabs 03/29/25
saxagliptin 5 mg tablet 5 mg PO DAILY #30 tabs 03/29/25
tamsulosin 0.4 mg capsule 0.8 mg (2 x 0.4 mg) PO DAILY #0 caps 03/29/25
Home Medication Changes
Jardiance increased to 25 mg daily.
Pending Results: No
--- NOTE | 2025-03-29 11:54 | CM ---
Reviewed chart. Met with Mr. Gamez and his daughter to review discharge plans. He states he is feeling well and maybe able to go home soon. We reviewed [facility] with them. Mr. Gamez states he does not feel he will need [facility] Services.
Daughter states his three daughters resides nearby and they are supportive. Prior to admission he resides alone in a one story home. Prior to admission he was independent with ambulation and adls. He does not have any DME in the home. He has a
prescription plan and uses [facility]. Medical work-up in progress. The discharge plan is to return home with daughters support when medically stable.
--- NOTE | 2025-03-29 12:09 | PN.DE.MGMTRT ---
Insulin Management
- -
03/29/2025 Diabetes Management Consult
Patient admitted 03/27 with change in mental status, syncopal episode, NSTEMI. PMH mild dementia, COPD, HTN, CAD, CKD. Prior to admission was taking saxagliptin 5 mg daily, Jardiance 12.5 mg daily and glipizide 5 mg daily. A1C on admission 8.9%,
cr 1, eGFR >60.
Patient is awake alert and oriented able to discuss diabetes management. Daughter at bedside with many questions. Patient ran out of test strips which he gets at the [place]. Recommended obtaining the [employer] meter at [facility] as test strips are more
affordable. Daughter questioning CGM; recommended checking with [facility] but usually not covered unless he is taking insulin.
Glucose on admission 320. Glucose range 155 to [address] Resendiz, will increase Jardiance to 25 mg, continue glipizide 5 mg daily and saxagliptin 5 mg.
Discussed with patient and daughter after discharge he should test glucose fasting each morning and 2 hours after each meal for two weeks to establish a pattern, after two weeks can test 2 times per day, fasting and 2 hours alternating after a
meal. To report glucose results to primary doctor and [facility].
My phone number provided for further questions.
Discussed with nurse.
Patient for discharge today.
Diabetes History
- -
Type of Diabetes: 2
Pre-Admission Diabetes Regimen
03/29/25
02:36
Creatinine 1.0
Lab Results
Hemoglobin A1c 8.9 % (4.0-5.6) H 03/28/25 00:55
Insulin Pump Settings
IP Diabetes Regimen
03/28/25 03/28/25 03/28/25
12:33 18:53 22:53
Glucose
POC Glucose 212 H 191 H 219 H
03/29/25 03/29/25 03/29/25
02:36 06:07 11:29
Glucose 163 H
POC Glucose 153 H 167 H
Meal type: Lunch
Amount consumed: 100%
Patient Education
[2025-03-29] MEDS: TOPROL XL 25 MG PO (12:45)
--- NOTE | 2025-03-29 13:27 | W.DS.TRANS ---
DC Summary - Rotary Drum Dyer
-
Discharge Instructions:
Discharge Diagnosis/Procedures Acute kidney injury, volume depletion,
nonischemic cardiomyopathy, syncope, left
carotid stenosis, cardiac catheterization
Diet Low Fat,Diabetic, Carb Controlled
Activity As tolerated
Driving Restrictions No driving for 24 hours
Bathing Restrictions None
Specialty Instructions Weigh Daily
Instructions:
Stand-Alone Forms: DC Instructions- Cath/EP Lab
Changes to Home Medications: Yes
Discharge Medications:
DC Medications w/original date entered in [employer]
aspirin 81 mg capsule 81 mg PO DAILY 03/28/25
gabapentin 300 mg tablet 600 mg PO TID 03/28/25
duloxetine 30 mg capsule,delayed release 30 mg PO BID #0 caps 03/29/25
empagliflozin 25 mg tablet (Jardiance) 25 mg PO DAILY #30 tabs 03/29/25
ezetimibe 10 mg tablet 10 mg PO DAILY #0 tabs 03/29/25
fluticasone propionate 115 mcg-salmeterol 21 mcg/actuation HFA inhaler 2 puff inhalation R BID #0 grams 03/29/25
galantamine 8 mg tablet 8 mg PO DAILY #0 tabs 03/29/25
glipizide 5 mg tablet 5 mg PO DAILY #30 tabs 03/29/25
losartan 100 mg tablet 100 mg PO DAILY #0 tabs 03/29/25
memantine 10 mg tablet 10 mg PO DAILY #30 tabs 03/29/25
metoprolol succinate 25 mg tablet,extended release 24 hr 25 mg PO DAILY #30 tabs 03/29/25
rosuvastatin 40 mg tablet 40 mg PO QPM #0 tabs 03/29/25
saxagliptin 5 mg tablet 5 mg PO DAILY #30 tabs 03/29/25
tamsulosin 0.4 mg capsule 0.8 mg (2 x 0.4 mg) PO DAILY #0 caps 03/29/25
Home Medication Changes
Jardiance dose increased.
Pending Results: No
== END 2025-03-29 14:24 | disposition home or self-care (01) | DRG 287 ==
LOC: IVU 21:58
PROVIDERS: Internal Medicine Interventional Cardiology; ADMITTING PHYSICIAN Internal Medicine; ATTENDING PHYSICIAN Hospitalist; CONSULT PHYSICIAN Internal Medicine Cardiovascular Disease; EMERGENCY PHYSICIAN Emergency Medicine; FAMILY PHYSICIAN Family Medicine
PROC: B2111ZZ Fluoroscopy of Multiple Coronary Arteries using Low Osmolar Contrast (ICD-10-PCS; 2025-03-29)
PROC: 4A023N6 Measurement of Cardiac Sampling and Pressure, Right Heart, Percutaneous Approach (ICD-10-PCS; 2025-03-29)
DX: I5A Non-ischemic myocardial injury (non-traumatic) (principal); N17.9 Acute kidney failure, unspecified; E11.65 Type 2 diabetes mellitus with hyperglycemia; I65.22 Occlusion and stenosis of left carotid artery; I25.10 Atherosclerotic heart disease of native coronary artery without angina pectoris; E86.9 Volume depletion, unspecified; J44.9 Chronic obstructive pulmonary disease, unspecified; E78.5 Hyperlipidemia, unspecified; G47.33 Obstructive sleep apnea (adult) (pediatric); N18.9 Chronic kidney disease, unspecified; I12.9 Hypertensive chronic kidney disease with stage 1 through stage 4 chronic kidney disease, or unspecified chronic kidney disease; Z85.828 Personal history of other malignant neoplasm of skin; Z79.84 Long term (current) use of oral hypoglycemic drugs; F03.A0 Unspecified dementia, mild, without behavioral disturbance, psychotic disturbance, mood disturbance, and anxiety; E11.22 Type 2 diabetes mellitus with diabetic chronic kidney disease; Z79.51 Long term (current) use of inhaled steroids; Z79.82 Long term (current) use of aspirin; Z79.899 Other long term (current) drug therapy; Z87.891 Personal history of nicotine dependence
CPT/HCPCS: 70450; 80048; 80053; 80061; 81003; 82010; 82962; 83036; 83735; 83880; 84443; 84484; 85025; 85027; 85730; 93005; 93306; 93458; 93880; 94640; 96361; 96374; 99152; 99285; 99406; C1769; C1894; Q9950; Q9967

== ENCOUNTER → 2025-05-10 14:12 | Outpatient (REF) | payer OTHER, SELFPAY | LOC: RCS 14:12 | PROVIDERS: ATTENDING PHYSICIAN Internal Medicine Cardiovascular Disease; FAMILY PHYSICIAN Family Medicine; OTHER PHYSICIAN Family Medicine | DX: I42.9 Cardiomyopathy, unspecified (principal) | CPT/HCPCS: 93306; Q9957 ==

== ENCOUNTER → 2025-05-26 14:48 | Outpatient (REF) | payer OTHER, SELFPAY | LOC: RAD 14:48 | PROVIDERS: ATTENDING PHYSICIAN Surgery Vascular Surgery; FAMILY PHYSICIAN Family Medicine | DX: I65.22 Occlusion and stenosis of left carotid artery (principal) | CPT/HCPCS: 70496; 70498; Q9967 ==

== ENCOUNTER 2025-06-02 06:15 | Inpatient (IN) | payer OTHER, SELFPAY ==
[2025-05-30 09:46] VITALS: BMI 26.8
[2025-05-30 10:12] LABS: Hematocrit 42.5 % (39.0-52.0); Hemoglobin 14.5 g/dL (13.0-18.0); Mean Corp Hgb Conc. 34.1 g/dL (33.0-37.0); Mean Corpuscular Volume 93.0 fL (80.0-94.0); Nucleated Red Blood Cells % 0 % (-); Platelet Count 132 10^3/uL (130-400); Red Cell Dist. Width 12.6 % (11.5-14.5)
[2025-05-30 10:41] LABS: INR 0.98; PT 13.3 Sec (11.4-14.6)
[2025-05-30 10:42] LABS: APTT 30.3 Sec (23.4-35.0)
[2025-05-30 11:04] LABS: Blood Urea Nitrogen 20 mg/dl (9-20); Calcium 9.1 mg/dl (8.4-10.2); Carbon Dioxide 26 mmol/L (22-30); Chloride 104 mmol/L (98-107); Estimated Creatinine Clearance 57 ml/min; Glucose 273 mg/dl (70-99); Potassium 4.2 mmol/L (3.5-5.1); Sodium 136 mmol/L (135-145); eGFR > 60.00
--- NOTE | 2025-05-30 15:36 | PTCARENOTE ---
Abnormal ECG done 04/14/[address] Barraza, no further intervention requested.
[2025-06-02] VITALS (7 sets, daily range): BP systolic 112–140; BP diastolic 65–83; BMI 26.6
[2025-06-02] MEDS: BACTROBAN NASAL 1 GRAM NASAL (07:05)
[2025-06-02] MEDS: VANCOCIN 530 MG IV (07:05)
[2025-06-02] MEDS: PERIDEX 0.12% ORAL RINSE 15 ML PO (07:05)
--- NOTE | 2025-06-02 07:12 | W.SUR.PREOP ---
Pre-Operative Surgical Note
-
I have examined this patient prior to the performance of the scheduled procedure.
The patient's condition is unchanged from the time of the current History and
Physical and the patient is able to undergo the scheduled procedure.
[2025-06-02 07:13] LABS: Glucose - Point of Care 215 mg/dl (70-99)
[2025-06-02] MEDS: NSS 500 IV (07:15)
--- NOTE | 2025-06-02 09:21 | OR.RPT ---
Operative Report
Operative Report
PROCEDURE DATE: 06/02/2025
Preoperative diagnosis: Symptomatic critical left carotid artery stenosis
Postoperative diagnosis: Same
Procedure: Left carotid endarterectomy with bovine pericardial patch angioplasty and intraoperative EEG/SSEP monitoring.
Surgeon: Carloz
Outreach Nurse: CASIE Loja, required for all aspects of procedure including assistance with traction/countertraction, following a suture line, assistance with closure.
Complications: None
Anesthesia: General
Indications for procedure:
Symptomatic left carotid artery stenosis. He had had a syncopal episode and immediately following that had expressive aphasia. Had a critical near occlusive left carotid artery stenosis. Risk/benefits/alternatives of revascularization were fully
discussed. Patient and his family understood all wished to proceed.
Description of procedure:
Patient was identified brought to the operating room placed on the table in supine position. After the adequate administration of anesthesia and perioperative antibiotics he was prepped and draped in the standard surgical fashion. A standard
preoperative timeout was undertaken and everybody was in agreement the plan. A standard longitudinal incision was made in the left neck that was carried through the skin subcutaneous tissue. Using the electrocautery dissection was carried through
the platysma muscle layer and then alongside the anterior medial border of the sternocleidomastoid muscle. An external jugular vein was ligated between silk ties and divided to allow better exposure. Then using a combination of sharp dissection
with the Metzenbaum scissors and electrocautery I dissected along the anterior medial border of the internal jugular vein. The common facial vein branch was ligated between silk ties and then divided. In addition the more cephalad branch was
ligated between silk ties and then divided to allow better exposure. I then deepened my retraction. The common carotid artery was identified and carefully dissected away from the surrounding structures take great care to avoid any injury to the
structures. A vessel loop was passed around it which was double looped, but not yet tightened. Note the vagus nerve was protected from harm's way. I then continued my dissection up the common carotid artery to the bulb staying only on the
anterior surface of the carotid artery. Then I carried the dissection up to the internal carotid artery and then to the distal internal carotid artery. The tissues were somewhat sticky, likely chronically inflamed from the plaque. I identified
where it was soft and carefully circumferentially dissected the internal carotid artery with minimal mobilization and passed a vessel loop around it. Note the hypoglossal nerve was clearly visualized and was preserved from harm's way. The patient
was given an appropriate dose of intravenous heparin 8500 units. Next I dissected the anterior surface of the external carotid artery and superior thyroid branches. These were then carefully circumferentially dissected with minimal mobilization
and vessel loops passed around these which were double looped but not yet tightened. After 3 minutes of heparin circulation time and confirmation of optimization of the blood pressure with my anesthesiology colleagues, I clamped the distal internal
carotid artery where it was soft. There was no immediate EEG or SSEP changes. After 1 minute of test clamp time there was no changes noted. Therefore at this point, the vessel loops on the external carotid artery and superior thyroid branches
were tightened and the common carotid artery was clamped where it was soft proximally. An arteriotomy was made on the common carotid artery with an 11 blade and extended using a Sarabia scissor. I extended the arteriotomy onto the mid to distal
internal carotid artery. As had been noted on CT scan, there is predominance of soft plaque that was somewhat friable centrally, that resulted in a severe near occlusive stenosis. A Shirley was then used to endarterectomized the plaque. An
endarterectomy plane was created, and the plaque was then endarterectomized. Distally I feathered the plaque out to a nice clean endpoint in the distal internal carotid artery. Next I endarterectomized the intima back to normal intima in the
common carotid artery, and the intima was cut flush there. I then grasped the plaque and everted plaque out of the origin of the external carotid artery. Plaque came out slightly piecemeal from the external carotid artery, but I was able to clear
the origin nicely. The plaque was then sent off for specimen. The origin of the external carotid artery was carefully visualized and any fine debris were removed with fine forceps. Proximal and distal endpoints were then carefully inspected. Any
fine debris was removed with fine forceps, and the intima was noted to be nicely adherent proximally and distally. Next any fine debris were removed throughout the endarterectomy bed with fine forceps. I then flushed heparinized saline. I was
very satisfied. Then, I used a bovine pericardial patch to sew a patch angioplasty with a running 6-0 Prolene suture. Prior to completing and tying down my suture line, I backbled sequentially each branch and reclamped each branch prior to
unclamping the next branch. I then irrigated with heparinized saline. Then I completed and tied down my suture line. We then restored flow in the common carotid and external carotid arteries. Finally, we released flow in the internal carotid
artery. There was excellent pulsatile flow in all 3 vessels. There was an excellent Doppler signal in the internal carotid artery distal to the patch with a good normal low resistance Doppler signal. There was a good Doppler signal in the
external carotid artery as well. Two 6-0 Prolene cefgfg-to-djlbo sutures were placed along two bleeding points along the suture line. Protamine was given to reverse the heparin. Hemostasis was completely achieved. We then irrigated and confirmed
full hemostasis. We then closed in layers with 2-0 Vicryl layer to reapproximate the sternocleidomastoid muscle, followed by 3-0 Vicryl platysma muscle running layer, followed by 4-0 Monocryl subcuticular stitch. Dermabond was applied. The
patient tolerated procedure well. He awoke moving all extremities to command with tongue in the midline. All sponge, needle, instrument counts were correct at the end of the case. Patient was transported recovery room in stable condition.
[2025-06-02 09:31] LABS: Glucose - Point of Care 244 mg/dl (70-99)
--- NOTE | 2025-06-02 09:46 | W.SUR.POST ---
Surgical Immediate Post Op
Note
Pre Op Diagnosis: Carotid stenosis
Post Op Diagnosis: Carotid stenosis
Procedure Performed: Left carotid endarterectomy with bovine pericardium patch, EEG monitoring
Primary Surgeon: Gonzalo Carty MD
Manager Rail: SINGH Jones
Anesthesia: GETA
Estimated Blood Loss: 15ml
Fluids: See anesthesia flow sheets
Drains/Shunts: N/A
Specimens/Cultures: Carotid plaque
Doppler/Duplex/Angio (Y/N): Y
Complications: None
Operative Findings: Successful carotid endarterectomy, upon awakening can move BL UE and LE spontaneously and to command with equal strength
[2025-06-02 09:53] LABS: Glucose - Point of Care 242 mg/dl (70-99)
[2025-06-02 10:07] LABS: Hematocrit 36.8 % (39.0-52.0); Hemoglobin 12.6 g/dL (13.0-18.0); Mean Corp Hgb Conc. 34.2 g/dL (33.0-37.0); Mean Corpuscular Volume 93.4 fL (80.0-94.0); Platelet Count 124 10^3/uL (130-400); Red Cell Dist. Width 12.4 % (11.5-14.5)
[2025-06-02 10:10] LABS: Blood Urea Nitrogen 20 mg/dl (9-20); Calcium 8.7 mg/dl (8.4-10.2); Carbon Dioxide 22 mmol/L (22-30); Chloride 110 mmol/L (98-107); Estimated Creatinine Clearance 68 ml/min; Glucose 260 mg/dl (70-99); Potassium 4.4 mmol/L (3.5-5.1); Sodium 138 mmol/L (135-145); eGFR > 60.00
[2025-06-02] MEDS: NOVOLOG vial 1 UNITS SC (10:14)
[2025-06-02 10:50] LABS: Glucose - Point of Care 292 mg/dl (70-99)
--- NOTE | 2025-06-02 11:00 | PTCARENOTE ---
Pt rec'd from PACU into ICU 3361 s/p left CEA...pt is AOX3, pleasant and cooperative, neuro check performed in tandem with offgoing RN, site checks per orders, left neck incision is approximated with surgical adhesive in place, mildly ecchymotic. Pt
RICHTER, strength equal bilat, pain level 6/10 in left neck. Orders rec'd and discussed with care team, pt medicated with PRN Roxicodone 5 mg-see MAR for documentation. Pt with NSS at 80/hr, PIV sites WNL, right radial art line leveled and zeroed,
slightly positional but stabilized with arm board, correlating with non invasive cuff. Pt's daughter arrived in room , admission completed, safe environment ongoing. Pt ordered bedrest this afternoon until am, all questions answered, call fernandez in
hand.
--- NOTE | 2025-06-02 11:28 | CON.INTV ---
Consultation
Consultation Request
Date/Time Consultation Requested: 06/02/2025924
Date/Time Consultation Performed: 06/02/2025952
Requesting Provider: SINGH Woodward
Performing Provider: Dr. Cintron
Reason for Consultation: S/p left CEA
Medical History
-
Chief Complaint: Elective left CEA
History of Present Illness:
79-year-old male former tobacco smoker with a past medical history of PAD, carotid artery stenosis, history of skin cancer, BPH, CKD, hyperlipidemia, hypertension, Alzheimer's dementia, NICM, gout, CAD and DM type II on insulin who presents for
elective left carotid endarterectomy. Patient known to vascular surgery with last visit on 05/27/[address] Carty. Patient has CTA head/neck on 05/26/2025 showing mixed density atherosclerotic plaque of the left carotid bifurcation/proximal ICA
with resultant focal complete occlusion of the proximal ICA. The remaining left ICA appears slightly diminutive. Patient was recommended for an expeditious revascularization for stroke prevention. Patient was recommended to have a carotid
endarterectomy and the risks of this procedure were discussed and the patient consented to this procedure. Today, patient underwent left carotid endarterectomy with bovine pericardial patch angioplasty and intraoperative EEG/SSEP monitoring. There
were no immediate complications. Patient was transferred to the ICU postoperatively, and Bridal Stylist Sales Consultant service is now consulted for additional management/recommendations.
When I saw the patient he was resting in bed in no acute distress. Current BP via A-line: 127/68, heart rate 54 and saturating 95% on room air. He has no complaints, denying chest pain, SIMPSON, shortness of breath, abdominal pain, nausea, fevers or
chills.
PMHx: Hyperlipidemia, hypertension, PAD, carotid arthrosclerosis, gout, nonobstructive CAD, DM type II on insulin, history of skin cancer (ear, nose and hand), CKD 3A, BPH, former tobacco user, suspected sleep apnea, Alzheimer's dementia,
nephrolithiasis (calcium oxalate), moderate mitral regurgitation, left rotator cuff tear, lung nodules, esophageal nodule, NICM
PSHx: Hemorrhoid surgery, bilateral cataract surgery, skin cancer excision
Past Medical History
Past Medical History: Other (Above as per HPI)
Past Surgical History: Other (Above as per HPI)
Social History
Tobacco: Former Smoker (14-[id number]-uspb history (0.5 PPD x 60 years) - quit last month)
Alcohol: Former (Quit in 1983)
Drug: None
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
Family History
Family History: CAD (Father, paternal uncle and brother) and Cancer (Mother: Lung cancer; Paternal aunt: liver cancer)
Allergies / Home Medications
Allergies
Allergy/AdvReac Type Severity Reaction Status Date / Time
lisinopril Allergy Severe angioedema Verified 06/02/25 06:32
metformin Allergy creatinine Verified 06/02/25 06:32
elevated
Penicillins Allergy Anaphylaxis Verified 06/02/25 06:32
shellfish derived Allergy Swelling Verified 06/02/25 06:32
Home Medications
�Medication �Instructions �Recorded �Confirmed �Last Taken �Type
ezetimibe 10 mg tablet 10 mg PO DAILY #0 tabs 03/29/25 06/02/25 06/01/25 11:00 Rx
glipizide 5 mg tablet 5 mg PO DAILY #30 tabs 03/29/25 06/02/25 06/01/25 11:00 Rx
losartan 100 mg tablet 100 mg PO DAILY #0 tabs 03/29/25 06/02/25 05/30/25 11:00 Rx
memantine 10 mg tablet 10 mg PO DAILY #30 tabs 03/29/25 06/02/25 06/01/25 11:00 Rx
metoprolol succinate 25 mg 25 mg PO DAILY #30 tabs 03/29/25 06/02/25 06/01/25 11:00 Rx
tablet,extended release 24 hr
rosuvastatin 40 mg tablet 40 mg PO QPM #0 tabs 03/29/25 06/02/25 06/01/25 21:00 Rx
gabapentin 600 mg tablet 600 mg PO TID Pain 05/27/25 06/02/25 06/01/25 21:00 History
tamsulosin 0.4 mg capsule 0.8 mg PO HS Urinary Issue 05/27/25 06/02/25 06/01/25 21:00 History
aspirin 81 mg tablet,delayed 81 mg PO DAILY Blood Clot 06/02/25 06/02/25 06/01/25 11:00 History
release Prevention/Tx
colchicine 0.6 mg tablet 0.6 mg PO DAILYPRN PRN gout 06/02/25 06/02/25 2 Years Ago History
~06/02/23
cyanocobalamin (vitamin B-12) 1,000 mcg PO DAILY Supplement 06/02/25 06/02/25 06/01/25 11:00 History
1,000 mcg tablet
duloxetine 30 mg capsule,delayed 60 mg PO HS Mental Health/Anxiety 06/02/25 06/02/25 06/01/25 21:00 History
release
empagliflozin 25 mg tablet 25 mg PO DAILY Heart 06/02/25 06/02/25 05/30/25 11:00 History
(Jardiance) Disease/Condition
fluticasone 250 mcg-salmeterol 50 1 inh inhalation Q12H 06/02/25 06/02/25 06/01/25 21:00 History
mcg/dose blistr powdr for Lung/Breathing Issues
inhalation (Wixela Inhub)
galantamine 8 mg tablet 8 mg PO DAILY Neurological 06/02/25 06/02/25 06/01/25 11:00 History
Condition
omega 9-nfi-cst-fish oil 1,000 mg 2 cap PO BID Supplement 06/02/25 06/02/25 06/01/25 21:00 History
(120 mg-180 mg) capsule (Fish Oil)
omeprazole 20 mg tablet,delayed 20 mg PO DAILY Gastrointestinal 06/02/25 06/02/25 06/01/25 11:00 History
release Issue
saxagliptin 5 mg tablet 5 mg PO DAILY Diabetes 06/02/25 06/02/25 05/31/25 11:00 History
Review of Systems
-
History Source: Patient
All other systems: Negative unless noted
Vitals / Labs / Diagnostic Testing
Vital Signs
Temp Pulse Resp BP Pulse Ox
98.1 F 58 22 130/80 95
06/02/25 15:49 06/02/25 17:30 06/02/25 17:30 06/02/25 11:44 06/02/25 17:30
Lab Data
06/02/25 09:48
06/02/25 09:48
Diagnostic Testing:
Physical Exam
-
HEENT: Normocephalic, Anicteric and Other (Vertical incision which appears clean and dry along left anterior neck)
Cardiovascular: S1/S2 and Peripheral Edema (negative)
Respiratory: Wheeze (negative), Rales (negative), Rhonchi (negative) and Non-Labored Respirations
GI: Soft, Non Distended, Non Tender and Normal Bowel Sounds
Neurology: AO x 3 and Tremors (negative)
Skin: Warm and Dry
General: Respiratory Distress (negative), Comfortable, Fever (negative) and Chills (negative)
Assessment
-
Assessment: 79-year-old male former tobacco smoker with a past medical history of PAD, carotid artery stenosis, history of skin cancer, BPH, CKD, hyperlipidemia, hypertension, Alzheimer's dementia, NICM, gout, CAD and DM type II on insulin who
presents for elective left carotid endarterectomy. Patient known to vascular surgery with last visit on 05/27/[address] Carty. Patient has CTA head/neck on 05/26/2025 showing mixed density atherosclerotic plaque of the left carotid
bifurcation/proximal ICA with resultant focal complete occlusion of the proximal ICA. The remaining left ICA appears slightly diminutive. Patient was recommended for an expeditious revascularization for stroke prevention. Patient was recommended
to have a carotid endarterectomy and the risks of this procedure were discussed and the patient consented to this procedure. On 06/02/2025, he underwent left carotid endarterectomy with bovine pericardial patch angioplasty and intraoperative
EEG/SSEP monitoring. There were no immediate complications. Patient was transferred to the ICU postoperatively, and Bridal Stylist Sales Consultant service is now consulted for additional management/recommendations.
Chronic conditions PERSONAL CONSULTANT: Hyperlipidemia, hypertension, PAD, carotid arthrosclerosis, gout, nonobstructive CAD, DM type II on insulin, history of skin cancer (ear, nose and hand), CKD 3A, BPH, Hx of tobacco use, suspected sleep apnea, Alzheimer's
dementia, nephrolithiasis (calcium oxalate), moderate mitral regurgitation, left rotator cuff tear, lung nodules, esophageal nodule, NICM
Impression:
#Symptomatic critical left carotid artery stenosis s/p left carotid endarterectomy with bovine pericardial patch angioplasty and intraoperative EEG/SSEP monitoring (POD #0)
#Anemia (chronic component)
#Thrombocytopenia (chronic component)
#DM type II complicated by hyperglycemia (uncontrolled � HbA1c: 8.9 on 03/28/2025)
#Former tobacco smoker (51-lgys-vphb history - quit last month)
#Nonobstructive CAD
#PAD
#Alzheimer's dementia
#BPH
#Lung nodules (bilateral sub-5 mm subpleural nodules which have been stable between June 2023 and August 2024)
#NICM
Plan:
Postoperative surgical intensive care unit monitoring
Supplemental oxygen as needed to maintain SpO2 >90-94%
prn nebulized bronchodilators (not currently bronchospastic)
Incentive spirometry encouraged 10x per hour for at least 4 hrs a day
Aspiration precautions
Pain control
Neuro and vascular checks per protocol
Maintain MAP>65
Replete electrolytes with K>4, Mg>2
Maintain euglycemia with goal BG 140-180
Vascular surgery following-correspondence and operative notes reviewed
Transfuse blood products as needed to keep Hb>7g/dL, and plt>50k (given post-operative status)
DVT prophylaxis
Early nutrition
Early mobilization
Critical care statement: A total of 37 minutes of critical care time was provided for this patient today. This includes management of unstable vital signs, evaluation of the patient at bedside, reviewing the patient's pertinent medical records
including radiographs, microbiology, laboratory evaluations, and discussion with primary team, consultants, pharmacy, nutrition, physical therapy, case management, charge nurse, critical care nursing, and respiratory therapy.
Data:
CTA head/neck with/without IV contrast 05/26/2025:
CT Brain: No acute intracranial process. Mild senescent changes.
CTA Head: No significant arterial stenosis. No aneurysm.
CTA Neck: There is mixed density atherosclerotic plaque of the left carotid bifurcation/proximal ICA with resultant focal complete occlusion of the proximal internal carotid artery. The remaining left ICA appears slightly diminutive.
Atherosclerotic plaque of the right carotid bifurcation/proximal ICA with resultant approximately 35-40% stenosis of the proximal right ICA. Calcifications of the right carotid bifurcation
[2025-06-02] MEDS: ROXICODONE 5 MG PO (11:33)
[2025-06-02] MEDS: NSS 1000 IV ×2 (11:42→21:41)
[2025-06-02 12:11] LABS: Glucose - Point of Care 297 mg/dl (70-99)
[2025-06-02] MEDS: NOVOLOG FLEXPEN-MODERATE RESISTANCE 5 UNITS SC (12:42)
[2025-06-02 14:10] LABS: Magnesium 1.6 mg/dl (1.6-2.3)
[2025-06-02 15:08] LABS: Glucose - Point of Care 336 mg/dl (70-99)
[2025-06-02] MEDS: NOVOLIN N vial 0.1 UNITS SC (15:09)
--- NOTE | 2025-06-02 15:54 | PTCARENOTE ---
Pt with no void since admit to ICU, bladder scanned for >1040, pt unable to void more than 50 mls in urinal, straight cath performed with sterile technique for 1100 mls clear yellow urine. Pt tolerated well.
[2025-06-02] MEDS: NEURONTIN 600 MG PO ×2 (16:36→21:40)
[2025-06-02] MEDS: CRESTOR 40 MG PO (16:36)
[2025-06-02 17:07] LABS: Glucose - Point of Care 312 mg/dl (70-99)
[2025-06-02] MEDS: NOVOLOG FLEXPEN-MODERATE RESISTANCE 7 UNITS SC (17:12)
[2025-06-02] MEDS: NOVOLOG FLEXPEN 4 UNITS SC (17:56)
--- NOTE | 2025-06-02 18:50 | PTCARENOTE ---
Pt remains AOx3, neuro checks WNL, no further complaints of pain at this time. Pt with elevated blood sugars ongoing this afternoon, discussed with pharmacy and shaker screen operator, orders rec'd for standing coverage in addition to sliding scale coverage.
Pt stated he is in the process of having his diabetic medications adjusted by his PCP. Safe environment continues.
--- NOTE | 2025-06-02 19:20 | PTCARENOTE ---
Patient received lying in bed, awake, alert and oriented watching TV. Neurologically intact. He currently denies pain. See test engineer charted on worklist flowsheet. BBS clear except right base diminished. Sats 97% on RA. S1 S2 regular, SB on CM
with borderline 1st degree and borderline BBB, prolonged QT. Bilateral pedal pulses weak, Bilateral pedal edema 1+. Abdomen round and distended, soft and nontender. Left neck incision CDI, approximated with dermabond intact. Right wrist [place] site
WDL, leveled and zeroed every 4 hours and as needed. Bed in low and locked position, call fernandez within reach.
[2025-06-02] MEDS: HEPARIN 5000 UNITS SC (19:33)
[2025-06-02] MEDS: ADVAIR HFA 115/21 MCG INHALER 2 PUFF INH (20:13)
[2025-06-02] MEDS: CYMBALTA DELAYED RELEASE 60 MG PO (21:38)
[2025-06-02] MEDS: FLOMAX 0.8 MG PO (21:39)
[2025-06-02] MEDS: LANTUS 0.1 UNITS SC (21:40)
[2025-06-02 21:45] LABS: Glucose - Point of Care 284 mg/dl (70-99)
--- NOTE | 2025-06-02 21:50 | PTCARENOTE ---
Patient HNV since straight cath approx 6 hours ago. Patient states slight urge to void but denies discomfort. Bladder scanned for > 696cc. Patient refuses to be straight cath'd at this time and wishes to void per urinal. Voids 125 and agrees to be
checked again in 2 hours. VSS.
--- NOTE | 2025-06-03 | PTCARENOTE ---
Patient voids 250cc per urinal stating that it is his normal to void frequently in small amounts. Denies urinary discomfort. Will continue to monitor for discomfort and rescan if needed. Patient understands that he will need to be bladder scanned
and straight cath'd if he develops discomfort or if BP becomes elevated. Rest of physical assessment unchanged. Patient is dozing intermittently.
[2025-06-03 00:53] LABS: Glucose - Point of Care 271 mg/dl (70-99)
[2025-06-03] MEDS: NOVOLOG FLEXPEN 5 UNITS SC (00:53)
--- NOTE | 2025-06-03 02:00 | PTCARENOTE ---
Patient is now voiding more easily and in larger amount. 400cc emptied from urinal.
--- NOTE | 2025-06-03 04:30 | PTCARENOTE ---
No change in patient's physical assessment. Continues to void well with another 475cc per urinal. AM labs drawn from [facility]. Denies pain. Dozing intermittently t/o night. Remains neurologically intact.
[2025-06-03 05:06] LABS: Hematocrit 34.5 % (39.0-52.0); Hemoglobin 11.9 g/dL (13.0-18.0); Mean Corp Hgb Conc. 34.5 g/dL (33.0-37.0); Mean Corpuscular Volume 92.5 fL (80.0-94.0); Platelet Count 118 10^3/uL (130-400); Red Cell Dist. Width 12.4 % (11.5-14.5)
[2025-06-03 05:19] LABS: INR 1.00; PT 13.7 Sec (11.4-14.6)
[2025-06-03 05:20] LABS: APTT 31.3 Sec (23.4-35.0)
[2025-06-03 05:54] LABS: Blood Urea Nitrogen 14 mg/dl (9-20); Calcium 8.3 mg/dl (8.4-10.2); Carbon Dioxide 21 mmol/L (22-30); Chloride 108 mmol/L (98-107); Estimated Creatinine Clearance 75 ml/min; Glucose 220 mg/dl (70-99); Potassium 3.8 mmol/L (3.5-5.1); Sodium 133 mmol/L (135-145); eGFR > 60.00
[2025-06-03 06:00] VITALS: BMI 26.7
--- NOTE | 2025-06-03 06:55 | PTCARENOTE ---
Report given verbally to oncoming otilia, Jez KUMAR. Questions answered.
[2025-06-03] MEDS: ADVAIR HFA 115/21 MCG INHALER 2 PUFF INH (07:48)
--- NOTE | 2025-06-03 08:09 | W.PN.VS ---
Addendum entered and electronically signed by Walter Avila III, MD 06/03/25 14:17:
This patient was seen in collaboration with SINGH Bauer. I agree with the history and physical exam as well as the assessment and plan.
Signed:
Walter Avila III, MD
Vascular Surgery
[facility]
Original Note:
Today's Communication / Plan
-
See below, plan reviewed with on-call attending.
Assessment/Plan
-
Assessment: 79-year-old male POD #1 left carotid endarterectomy
Plan:
Discontinue IV fluids
Discontinue arterial line
Out of bed to chair with progression to ambulation as tolerated
Continue aspirin 81 mg p.o. daily and statin
Possible discharge later this afternoon pending patient progression
Subjective Data
-
Date of Service: June 03, 2025
Patient seen examined bedside, offers no complaints. Denies headache, nausea, vomiting, fever, and chills. Reports well-managed postoperative discomfort at left neck surgical incision. Tolerating p.o. diet.
Objective Data
-
Vital Signs
Temp Pulse Resp BP Pulse Ox
98 F 63 16 112/75 96
06/03/25 03:11 06/03/25 07:51 06/03/25 07:51 06/02/25 19:40 06/03/25 07:51
Intake and Output
06/02/25 06/03/25 06/04/25
06:59 06:59 06:59
Intake Total 5980 / 6060 80 / 80
Output Total 2400 / 2400 0 / 0
Balance 3580 / 3660 80 / 80
Intake:
Oral fluids 3660 / 3660 0 / 0
IV fluids (Total) 2320 / 2400 80 / 80
Normosol 800 / 800
Nss 1,000 ml @ 80 mls/hr IV . 1520 / 1600 80 / 80
[id number] [facility] Rx#:[id number]
Output:
Urine, Voided 1300 / 1300 0 / 0
Straight cath output 1100 / 1100
Lab Results
06/03/25 04:49
06/03/25 04:49
Calcium 8.3 mg/dl (8.4-10.2) L 06/03/25 04:49
Phosphorus 3.5 mg/dl (2.5-4.5) 06/02/25 09:48
Magnesium 1.6 mg/dl (1.6-2.3) 06/02/25 09:48
Physical Exam
-
No apparent distress, resting in bed comfortably
Left neck surgical incision clean, dry, and intact, no evidence of hematoma or edema, face symmetrical, tongue midline
No tachycardia
No dyspnea on room air
Moves bilateral upper extremities and lower extremities to command and spontaneously with equal strength
[2025-06-03 08:12] VITALS: BP 122/57
--- NOTE | 2025-06-03 08:17 | PTCARENOTE ---
Art line removed, OOB to chair w.o issue.
Focally intact, normocephalic, ambulating appropriately.
Hemodynamically stable, all questions answered.
--- NOTE | 2025-06-03 08:20 | W.PN.INTV ---
Today's Communication / Plan
Recommendations
Pain control
Up OOB as tolerated
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
Patient will follow-up with Dr. Fulton as an outpatient and also see a natural resources extension educator at the [place]
Patient is being prepared for discharge home. No additional recommendations at this time. Casing Runner/Pulmonary service will now sign off. Please reconsult if there are any additional questions/concerns, or if patient's respiratory status
deteriorates.
Assessment
-
Assessment: 79-year-old male former tobacco smoker with a past medical history of PAD, carotid artery stenosis, history of skin cancer, BPH, CKD, hyperlipidemia, hypertension, Alzheimer's dementia, NICM, gout, CAD and DM type II on insulin who
presents for elective left carotid endarterectomy. Patient known to vascular surgery with last visit on 05/27/[address] Carty. Patient has CTA head/neck on 05/26/2025 showing mixed density atherosclerotic plaque of the left carotid
bifurcation/proximal ICA with resultant focal complete occlusion of the proximal ICA. The remaining left ICA appears slightly diminutive. Patient was recommended for an expeditious revascularization for stroke prevention. Patient was recommended
to have a carotid endarterectomy and the risks of this procedure were discussed and the patient consented to this procedure. On 06/02/2025, he underwent left carotid endarterectomy with bovine pericardial patch angioplasty and intraoperative
EEG/SSEP monitoring. There were no immediate complications. Patient was transferred to the ICU postoperatively, and Casing Runner service is now consulted for additional management/recommendations.
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
dementia, nephrolithiasis (calcium oxalate), moderate mitral regurgitation, left rotator cuff tear, lung nodules, esophageal nodule, NICM
Impression:
#Symptomatic critical left carotid artery stenosis s/p left carotid endarterectomy with bovine pericardial patch angioplasty and intraoperative EEG/SSEP monitoring (POD #1)
#Anemia (chronic component)
#Thrombocytopenia (chronic component)
#DM type II complicated by hyperglycemia (uncontrolled � HbA1c: 8.9 on 03/28/2025)
#Former tobacco smoker (51-xioo-sdcq history - quit last month)
#Nonobstructive CAD
#PAD
#Alzheimer's dementia
#BPH
#Lung nodules (bilateral sub-5 mm subpleural nodules which have been stable between June 2023 and August 2024)
#NICM
Plan:
Postoperative surgical intensive care unit monitoring
Supplemental oxygen as needed to maintain SpO2 >90-94%
prn nebulized bronchodilators (not currently bronchospastic)
Incentive spirometry encouraged 10x per hour for at least 4 hrs a day
Aspiration precautions
Pain control
Neuro and vascular checks per protocol
Maintain MAP>65
Replete electrolytes with K>4, Mg>2
Maintain euglycemia with goal BG 140-180; blood sugars have been >200 and his A1c from March was 8.9. He is going to be seeing Dr. Fulton with endocrinology this upcoming Friday, and also has plans to follow-up with a natural resources extension educator [place].
- In the interim, I will consult the natural resources extension educator here for teaching and other insulin recommendations --> patient will start Lantus 15 units and increase glipizide to 5 mg twice daily. He will continue Farxiga and Januvia. I spoke to the
patient after the natural resources extension educator saw him, and I answered all of his questions. He said he understood how to check his sugars at home and he knows what to take for his diabetes going forward.
Vascular surgery following-correspondence and operative notes reviewed
Transfuse blood products as needed to keep Hb>7g/dL, and plt>50k (given post-operative status)
DVT prophylaxis
Early nutrition
Early mobilization
Patient is being prepared for discharge home. No additional recommendations at this time. Casing Runner/Pulmonary service will now sign off. Thank you for allowing us to be involved in the care of this patient. Please reconsult if there are any
additional questions/concerns, or if patient's respiratory status deteriorates.
Data:
CTA head/neck with/without IV contrast 05/26/2025:
CT Brain: No acute intracranial process. Mild senescent changes.
CTA Head: No significant arterial stenosis. No aneurysm.
CTA Neck: There is mixed density atherosclerotic plaque of the left carotid bifurcation/proximal ICA with resultant focal complete occlusion of the proximal internal carotid artery. The remaining left ICA appears slightly diminutive.
Atherosclerotic plaque of the right carotid bifurcation/proximal ICA with resultant approximately 35-40% stenosis of the proximal right ICA. Calcifications of the right carotid bifurcation
Total time spent today was 58 minutes for this encounter. Time includes reviewing laboratory test/imaging results, reviewing pertinent medical records, obtaining and reviewing medical history, performing an appropriate exam, ordering medications,
tests and procedures. Time also includes documentation of this encounter, coordinating patient care and communicating with other healthcare professionals. Total time does not include separately billed tests performed on this date of service.
Subjective Dataa
Subjective Data
Date of Service:
Date of Service: June 03, 2025
Chief Complaint: Casing Runner Follow Up
Subjective:
Patient was seen and evaluated this morning. Current heart rate 71, BP 122/57 and on room air breathing comfortably. Patient's daughter, December, present at bedside. He denies any pain at his operative site.
Review of Systems
General: Other (Negative unless mentioned above)
Objective Data
Data Reviewed
Vital Signs / I&O / Oxygen:
Vital Signs
Temp Pulse Resp BP Pulse Ox
98 F 62 16 122/57 96
06/03/25 03:11 06/03/25 09:04 06/03/25 07:51 06/03/25 09:04 06/03/25 07:51
Intake and Output
06/02/25 06/03/25 06/04/25
06:59 06:59 06:59
Intake Total 5980 / 6060 80 / 80
Output Total 2400 / 2400 200 / 200
Balance 3580 / 3660 -120 / -120
SaO2 96
Nasal Cannula flow liters per 2
minute
Physical Exam
General: Respiratory Distress (negative), Comfortable, Chills (negative) and Sweats (negative)
HEENT: Normocephalic and Anicteric
Cardiovascular: S1-S2 and Peripheral Edema (negative)
Respiratory: Wheeze (negative), Crackles (negative), Rhonchi (negative), Non-Labored Respirations and Stridor (negative)
GI: Soft, Non Distended, Non Tender and Normal Bowel Sounds
Neurology: Awake, Alert, Oriented and Tremors (negative)
Skin: Warm, Dry, Cyanosis (negative) and Jaundice (negative)
Labs/Micro/Reports
Lab Data
06/03/25 04:49
06/03/25 04:49
Laboratory Results
06/03/25
04:49
PT 13.7
INR 1.00
APTT 31.3
[2025-06-03 09:02] LABS: Glucose - Point of Care 237 mg/dl (70-99)
[2025-06-03] MEDS: NOVOLOG FLEXPEN 4 UNITS SC ×2 (09:02→11:46)
[2025-06-03] MEDS: NOVOLOG FLEXPEN-HIGH RESISTANCE 4 UNITS SC ×2 (09:02→11:45)
[2025-06-03] MEDS: PROTONIX 40 MG PO (09:03)
[2025-06-03] MEDS: ASPIR LOW (ENTERIC COATED) 81 MG PO (09:03)
[2025-06-03] MEDS: TOPROL XL 25 MG PO (09:03)
[2025-06-03] MEDS: FARXIGA 10 MG PO (09:04)
[2025-06-03] MEDS: ZETIA 10 MG PO (09:04)
[2025-06-03] MEDS: GLUCOTROL 5 MG PO (09:04)
[2025-06-03] MEDS: COZAAR 100 MG PO (09:04)
[2025-06-03] MEDS: VITAMIN B-12 1000 MCG PO (09:04)
[2025-06-03] MEDS: HEPARIN 5000 UNITS SC (09:05)
[2025-06-03] MEDS: NAMENDA 10 MG PO (09:05)
[2025-06-03] MEDS: NEURONTIN 600 MG PO (09:05)
[2025-06-03] MEDS: JANUVIA 100 MG PO (10:19)
--- NOTE | 2025-06-03 11:40 | CM ---
Initial assessment completed with patient who lives alone in a 1 story home with no basement, 3 steps to enter. SHAREPOINT ADMIN patient was independent in ADL's and ambulation, drives. Does have a SPC, CPAP and glucometer in home. No in-home services. Does have
HC-POA. Was in the [employer] and has full [employer] banefits. No psychiatric hospitalizations. PCP is Dr. Lisa Lobo. [facility]acy [facility] [address] in [place]. Discharge POC: Anticipate home with no needs.
[2025-06-03 11:45] LABS: Glucose - Point of Care 230 mg/dl (70-99)
[2025-06-03 11:47] VITALS: BP 111/68
--- NOTE | 2025-06-03 11:49 | PTCARENOTE ---
No change in pt. assessment.
[2025-06-03 12:00] VITALS: BP 100/66
--- NOTE | 2025-06-03 12:57 | PN.DE.MGMTRT ---
Insulin Management
- -
06/03/2025: Diabetes Management Consult
79 year old male with hx of Carotid arthrosclerosis, who presented for elective left carotid endarterectomy. Other PMH include: HTN, HLD, PAD, Gout, Nonobstructive CAD, hx of skin cancer (ear, nose and hand), CKD 3A, BPH, former tobacco user,
suspected TARAN, Alzheimer's dementia, nephrolithiasis (calcium oxalate), moderate mitral regurgitation, left rotator cuff tear, lung nodules, esophageal nodule, NICM and T2DM. A1C 8.9%, Cr 0.9, eGFR >60
Was taking Jardiance 25mg daily, glipizide 5mg daily and saxagliptin 5 mg daily. He sees PCP Dr. Lauren Lobo and Dr. Sally Samaniego at the [facility] for routine diabetes care. States he has an appointment with [facility] Dr. Fulton next week
and that he was approved for Ozempic but has not started taking it.
Pt awake, alert, sitting up in chair, offers no complaints, able to discuss diabetes care plan.
Patient underwent left carotid endarterectomy with bovine pericardial patch angioplasty yesterday.
Current diabetes regimen includes glipizide 5mg daily, Farxiga 10mg daily and Lantus 10 units @ HS.
Glucose has been elevated since admission. HS glucose was 284, received Lantus 20 units, FBG 220 V, 237 POC today, premeal range was 297 to 336 yesterday.
Had a length discussion with pt regarding option for diabetes management for optimal glucose control.
Discussed continuation of Lantus at bedtime and increasing Glipizide to BID and pt was agreeable. Will start HS Lantus 15 units and increased glipizide 5mg to BID. 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
Discussed with printing supervisor, vascular team, hospitalist and Nurse. Will cont to monitor
Provided insulin instructions at bedside, please see pt education not section.
Meds at discharge: Lantus 15 units @ HS, Jardiance 25mg daily, glipizide 5mg BID, daily and saxagliptin 5 mg daily
Diabetes History
- -
Type of Diabetes: 2 requiring insulin
Pre-Admission Diabetes Regimen
06/03/25
04:49
Creatinine 0.9
Insulin Pump Settings
IP Diabetes Regimen
06/02/25 06/02/25 06/02/25
15:07 17:06 21:32
Glucose
POC Glucose 336 H 312 H 284 H
06/03/25 06/03/25 06/03/25
00:42 04:49 09:01
Glucose 220 H
POC Glucose 271 H 237 H
06/03/25
11:44
Glucose
POC Glucose 230 H
Meal type: Breakfast
Meal type: Lunch
Amount consumed: 100%
Amount consumed: 100%
Patient Education
--- NOTE | 2025-06-03 13:51 | PN.DE ---
Diabetes Education
- -
Diabetes Education:
Met with Mr. Gamez for insulin instructions, A1C 8.9%. Pt was made aware of significance of high A1C in relation to uncontrolled diabetes and terminal gauger supervisor complications.
Discussed action of long acting insulin as well as symptoms and treatment of hypoglycemia, as he will be discharged on long acting- Lantus at bedtime. Instructions on set up of insulin pen given with good return demonstration. Tyrone is aware to check
blood sugar twice a day , fasting and before dinner.
He was instructed to insulin in abdomen or in the outer thigh, rotating sites. He was also made aware to store insulin pens that are not in use in the refrigerator. Discussed importance of checking blood sugar to assess food/medication effect on his
Blood Sugar and to know the effect of the basal insulin on his blood sugars overnight, Pt verbalized understanding.
Provided information and handout on outpt education classes
RX for basal insulin as well as insulin pen needles were sent to his pharmacy. Pt was encouraged to obtain script for CGM from his PCP or Endo office
Updates given to pt's Nurse.
Pt was offered a new glucose meter but declined it stating that she already has a working meter at home.
--- NOTE | 2025-06-03 15:04 | CM ---
Patient has been medically cleared for discharge to home with no additional skilled services. Patient has arranged for transport home.
[2025-06-03 15:11] VITALS: BP 109/68
== END 2025-06-03 15:36 | disposition home or self-care (01) | DRG 38 ==
LOC: ICU 06:15
PROVIDERS: Nurse Practitioner; ADMITTING PHYSICIAN Surgery Vascular Surgery; CONSULT PHYSICIAN Internal Medicine Critical Care Medicine; PRIMARYCARE PHYSICIAN Family Medicine
PROC: 03UJ0KZ Supplement Left Common Carotid Artery with Nonautologous Tissue Substitute, Open Approach (ICD-10-PCS; 2025-06-02)
PROC: 03CJ0ZZ Extirpation of Matter from Left Common Carotid Artery, Open Approach (ICD-10-PCS; 2025-06-02)
DX: I65.22 Occlusion and stenosis of left carotid artery (principal); F02.84 Dementia in other diseases classified elsewhere, unspecified severity, with anxiety; I42.8 Other cardiomyopathies; D69.6 Thrombocytopenia, unspecified; E11.22 Type 2 diabetes mellitus with diabetic chronic kidney disease; E78.5 Hyperlipidemia, unspecified; G30.9 Alzheimer's disease, unspecified; I12.9 Hypertensive chronic kidney disease with stage 1 through stage 4 chronic kidney disease, or unspecified chronic kidney disease; I25.10 Atherosclerotic heart disease of native coronary artery without angina pectoris; M10.9 Gout, unspecified; N18.31 Chronic kidney disease, stage 3a; N40.0 Benign prostatic hyperplasia without lower urinary tract symptoms; E11.51 Type 2 diabetes mellitus with diabetic peripheral angiopathy without gangrene; Z79.82 Long term (current) use of aspirin; Z79.84 Long term (current) use of oral hypoglycemic drugs; Z79.899 Other long term (current) drug therapy; Z88.0 Allergy status to penicillin; Z88.8 Allergy status to other drugs, medicaments and biological substances; Z82.49 Family history of ischemic heart disease and other diseases of the circulatory system; Z85.828 Personal history of other malignant neoplasm of skin; Z87.891 Personal history of nicotine dependence; Z79.4 Long term (current) use of insulin
CPT/HCPCS: 35301; 36415; 71046; 80048; 82962; 83735; 84100; 85025; 85027; 85610; 85730; 86850; 86900; 86901; 88304; 88311; 93005; 93922; 93925; 94640; 95938; 95941; 95955; C1757

== ENCOUNTER → 2025-07-18 14:41 | Outpatient (REF) | payer OTHER, SELFPAY | LOC: RAD 14:41 | PROVIDERS: ATTENDING PHYSICIAN Registered Nurse; FAMILY PHYSICIAN Family Medicine | DX: I65.22 Occlusion and stenosis of left carotid artery (principal) | CPT/HCPCS: 93880 ==